=== PATIENT | female | born 1935 | race Caucasian/White ===

== ENCOUNTER 2019-09-21 10:33 | Inpatient (IN) | payer MEDICARE, SELFPAY ==
[2019-09-21 10:42] VITALS: BP 170/87; PULSE 84; RESP 20; TEMP 36.4; BMI 20.2
--- NOTE | 2019-09-21 10:55 | CT_ITS ---
WS: [id number] CT head wo con* [id number] REASON FOR EXAM: fall IV CONTRAST ADMINISTERED: None. TOTAL EXAM DLP: 1330.[address] scans at [facility] use at least one of these dose optimization techniques: automat ed exposure control; mA and/or kV adjustment per patient size (includes targeted exams where dose is matched to clinical indication); or iterative reconstruction. FINDINGS: There is again noted a small left occipital lobe infarction that has not changed since prev ious exam of August 04, 2017. There is mild effacement of the sulci in the frontal lobes suggesting cerebral atrophy. The ventricles are slightly prominent. There is again noted a small hypointensity in the internal cap natali area on the right consistent with a remote small vessel ischemic changes similar to the previous exam. The paranasal sinuses appear to be normal. The orbits show no abnormalities. The calvarium appear to be within normal limits. There is sclerotic changes along the intracranial vasculature are seen. Along the carotid siphon area there is heavy arteriosclerotic changes seen. This appears to be increased since previous exam. No a neurysms are seen. CT/CT head wo con* [id number] IMPRESSION: When compared to previous exam there is no acute intracranial processes Stable left chronic occipital lobe infarction. Unchanged small vessel ischemic changes in the paraventricular area. The carotid siphon shows increase arteriosclerotic changes bilaterally progress yokasta since previous exam slightly.
--- NOTE | 2019-09-21 11:07 | W.ED.FALL ---
HPI - Fall General: Chief Complaint: Fall Stated Complaint: LEFT HIP PAIN Time Seen by Provider: 09/21/19 10:55 History of Present Illness: HPI Narrative: Patient is an 84-year-old female who comes to the ED with left hip pain. Patient states she fell 2 days ago. She was unsure if she hit her head or not. Her only complaint after the fall was having left hip pain. Patient lives at home and ambulates without any assisting devices. Patient refuses any pain medications while here in the ED. Patient told me I do not believe in all these pain medicines. Patient feels pain in left hip whenever she moves left leg. Patient wears oxygen at home but is unsure of her flow rate. Associated symptoms-after fall: Denies abdominal pain, chest pain, headache(s), hematuria or neck pain Review of Systems Const: Denies: fever, chills or fatigue Eyes: Denies: change in vision or eye discomfort ENMT: Denies: throat pain, painful swallowing, nasal discharge or nasal congestion Card: Denies: chest pain, palpitations, edema, swelling of feet/ankles, shortness of breath on exertion or shortness of breath when lying down Resp: Denies: shortness of breath, productive cough or non-productive cough GI: Denies: abdominal pain, nausea, vomiting, diarrhea, constipation or blood in stool : Denies: flank pain, painful urination or blood in urine Musc: Reports: joint pain (left hip); Denies: neck pain, back pain or extremity swelling Skin/Breast: Denies: rash or new lesion Neuro: Denies: headache, numbness in extremities or weakness in extremities PFS ED PFSH: Medical History Anemia of chronic disease COPD (chronic obstructive pulmonary disease) Diabetes mellitus type 2, noninsulin dependent Diastolic heart failure History of CVA (cerebrovascular accident) Peripheral vascular disease Surgical History History of carotid endarterectomy Family History Other Cancer Diabetes Social History Smoking and tobacco status: current every day smoker Alcohol intake: never Substance/Drug Use: never Physical Exam Const: COMMON NORMALS: oriented x3 and alert GENERAL APPEARANCE: frail appearing NUTRITIONAL APPEARANCE: cachectic HENMT: COMMON NORMALS: normocephalic HEAD & SCALP: normal to inspection and normocephalic; no Mcmanus's sign, no contusion, no hematoma and no raccoon eyes MOUTH: oral and palatal mucosa normal THROAT: posterior oropharynx normal and uvula midline Eye: COMMON NORMALS: PERRL and EOMs intact bilaterally PUPIL: Yes PERRL Neck/C-Spine: COMMON NORMALS: supple GENERAL: Yes normal visual inspection Resp: COMMON NORMALS: normal respiratory effort, no retractions, no use of accessory muscles and clear to auscultation bilaterally AUSCULTATION: clear to auscultation bilaterally Cardio: COMMON NORMALS: regular rate, regular rhythm, S1 normal heart sound, S2 normal heart sound, no gallops, no clicks, no murmurs and peripheral pulses 2+ throughout RATE: regular rate RHYTHM: regular rhythm HEART SOUNDS: S1 normal and S2 normal PERIPHERAL PULSES: pulses 2+ throughout GI: COMMON NORMALS: normal to inspection, nondistended, normoactive bowel sounds, soft to palpation, non-tender and no masses PALPATION: Yes soft : COMMON NORMALS: Yes no CVA tenderness BLADDER/KIDNEY EXAM: Yes no CVA tenderness Back/Pelvis: COMMON NORMALS: no CVA tenderness Extremity: COMMON NORMALS: no pedal edema NARRATIVE EXTREMITY EXAM: Left lower leg appears to be externally rotated. Pulse was 1+2 left lower extremity and sensation was intact. She was able to move toes and ankle of left leg. Lifting leg or bending knee caused pain in left hip. GENERAL: Yes normal exam except as noted LEFT LOWER EXTREMITY: Yes hip joint Left hip: Yes palpation (mild tenderness), Yes ROM (limited due to pain) and Yes neurovascular exam (intact) Neuro: COMMON NORMALS: oriented x3, CN's II-XII intact bilaterally, moves all extremities, no focal motor deficits and no sensory deficits noted SENSORIUM/ORIENTATION: Yes alert Skin: COMMON NORMALS: no rashes or lesions noted GENERAL SKIN EXAM: no rashes or lesions noted and dry skin Course ED course: Patient's daughter was present when I discussed plan of care which involved patient being admitted and having a surgery on Monday or Monday. Patient and patient's daughter both understood and agreed with plan to go ahead with admission and surgery. I discussed patient case with Dr. Don and he will be handling the admission of patient. Consultations: Consultation #1: I contacted Dr. Sandoval, the on[place] [facility] [place] and discussed patient case with him. He recommended patient get admitted via hospitalist. They would control her pain over the weekend and plan on having a surgery on Monday or Monday. Vital Signs: Vital signs: Vital Signs Temperature 98.9 F 09/22/19 04:00 Pulse Rate 102 H 09/22/19 04:00 Respiratory Rate 18 09/22/19 04:00 Blood Pressure 133/69 09/22/19 04:00 Pulse Oximetry 94 09/22/19 04:00 MDM - Fall MDM Narrative: Medical decision making narrative: Patient is a 84-year-old female comes to the ED with left hip pain after fall. Left hip x-ray shows a subcapital fracture of the left hip. I contacted Dr. Sandoval the on-call orthopedic surgeon and he wanted patient to be admitted and planning for surgery on Monday or Monday. I discussed the case with Dr. Don and he will be handling the admitting process. Patient and patient's daughter were present when I discussed plan of care. They both understood and agreed with plan. Lab Data: Labs: Lab Results 09/21/19 Range/Units 11:55 Urine Color Yellow (Yellow) Urine Appearance Sl hazy (CLEAR) Urine pH 8 H (5-7) Ur Specific Gravit y 1.010 (1.005-1.030) Urine Protein Neg (Negative) Urine Glucose (UA) Norm (Normal) Urine Ketones Negative (Negative) Urine Blood 3+ H (Negative) Urine Nitrate Positive H (Negative) Urine Bilirubin Neg (NEGATIVE) Prot Sulfosalicyli c Acd Negative (Negative) Urine Urobilinogen Norm (Negative) mg/dL Ur Leukocyte Ana ase Negative (Negative) Urine RBC 15-25 H (0-2) /hpf Urine WBC 5-10 H (0-5) /hpf Ur Squamous Epith Cells 0-4 H (0-5) Urine Bacteria 4+ H (NONE) Imaging Data^: Xray Ortho: Attestation: I personally reviewed and interpreted this imaging study as follows: Radiologist's impression: [address] [address] XRay Report Signed Patient: Tabitha Meredith Unit #: [id number] : 1935 Age/Sex: 84 / F ADM Date: 09/21/19 Loc: ER Room/Bed: Attending Dr: Ordering Provider/Ordering MD: Tano Grullon Date of Service: 09/21/19 Procedure(s): XR hip LT 2-3V wo/w pel* [id number] Accession Number(s): [id number] Report Number: [id number] WS: [id number] XR hip LT 2-3V wo/w pel* [id number] REASON FOR EXAM: fall with left hip pain FINDINGS: This study shows an impacted fracture of the subcapital area of the left hip. Right hip appears to be normal. Tilt of the pelvis toward the right side is seen. XR/XR hip LT 2-3V wo/w pel* [id number] IMPRESSION: Subcapital fracture of the left hip. Tilt of the pelvis toward the left side. There is heavy arteriosclerotic changes present. Dictated By: Maxi Davalos DO Signed By: Maxi Davalos DO Signed Date/Time: 09/21/19 1226 DD/ 1225 CT Head: Attestation: I personally reviewed and interpreted this imaging study as follows: Radiologist's impression: [address] [address] [address] Scan Report Signed Patient: Tabitha Meredith Unit #: [id number] : 1935 Age/Sex: 84 / F ADM Date: 09/21/19 Loc: ER Room/Bed: Attending Dr: Ordering Provider/Ordering MD: Tano Grullon Date of Service: 09/21/19 Procedure(s): CT head wo con* [id number] Accession Number(s): [id number] Report Number: [id number] WS: [id number] CT head wo con* [id number] REASON FOR EXAM: fall IV CONTRAST ADMINISTERED: None. TOTAL EXAM DLP: 1330.[address] scans at [facility] use at least one of these dose optimization techniques: automated exposure control; mA and/or kV adjustment per patient size (includes targeted exams where dose is matched to clinical indication); or iterative reconstruction. FINDINGS: There is again noted a small left occipital lobe infarction that has not changed since previous exam of August 04, 2017. There is mild effacement of the sulci in the frontal lobes suggesting cerebral atrophy. The ventricles are slightly prominent. There is again noted a small hypointensity in the internal capsule area on the right consistent with a remote small vessel ischemic changes similar to the previous exam. The paranasal sinuses appear to be normal. The orbits show no abnormalities. The calvarium appear to be within normal limits. There is sclerotic changes along the intracranial vasculature are seen. Along the carotid siphon area there is heavy arteriosclerotic changes seen. This appears to be increased since previous exam. No aneurysms are seen. CT/CT head wo con* [id number] IMPRESSION: When compared to previous exam there is no acute intracranial processes Stable left chronic occipital lobe infarction. Unchanged small vessel ischemic changes in the paraventricular area. The carotid siphon shows increase arteriosclerotic changes bilaterally progressive since previous exam slightly. Dictated By: Maxi Davalos DO Signed By: Maxi Davalos DO Signed Date/Time: 09/21/19 1134 DD/ 1120 Discharge Plan Discharge Patient Disposition: Admitted As Inpatient Admit Provider: Leroy Arce Clinical Impression: Nondisplaced fracture of neck of left femur Atrial fibrillation Qualifiers: Atrial fibrillation type: other persistent Qualified Code(s): I48.19 - Other persistent atrial fibrillation Condition: Stable Discharge Date/Time: 09/21/19 18:46 Coding Level of Care Code ED Glazing Superintendent for Chg Fwd Exam Comprehensive
--- NOTE | 2019-09-21 11:25 | XR_ITS ---
WS: [id number] XR hip LT 2-3V wo/w pel* [id number] REASON FOR EXAM: fall with left hip pain FINDINGS: This study shows an impacted fracture of the subcapital area of the left hip. Right hip cande ears to be normal. Tilt of the pelvis toward the right side is seen. XR/XR hip LT 2-3V wo/w pel* [id number] IMPRESSION: Subcapital fracture of the left hip. Tilt of the pelvis toward the left side. There is heavy arteriosclerotic changes present.
--- NOTE | 2019-09-21 12:03 | PC.NURSE ---
UA collected and sent to lab
[2019-09-21 12:39] LABS: Urine Appearance SL Hazy (CLEAR); Urine Color Yellow (Yellow)
[2019-09-21 12:40] LABS: Bilirubin Urine Neg (NEGATIVE); Blood Urine 3+ (Negative); Glucose Urine UA Norm (Normal); Ketones Urine Negative (Negative); Leukocyte Esterase Urine Negative (Negative); Nitrate Urine Positive (Negative); Protein Urine Neg (Negative); Sulfosalicylic Acid Urine Negative (Negative); Urobilinogen Urine Norm (Negative); pH Urine 8 (5-7)
[2019-09-21 12:47] LABS: RBC Urine 15-25 /hpf (0-2)
[2019-09-21 12:48] LABS: Add Urine Culture? Yes; Bacteria Urine 4+; Squamous Epithelial Cell Urine 0-4 (0-5)
--- NOTE | 2019-09-21 15:51 | PM.CONSULT ---
Providers/Reason For Consult Consulting Physican/Specialty*: Arnel Sandoval MD Orthopedic Surgery Reason for Consult*: Left femoral neck fracture Primary Care Provider: Keny Szymanski DO History of Present Illness History of Present Illness Tabitha Meredith is a 84 year old female apparently lives at home. She is unable to give any history of being quite confused but reportedly had a fall with resulting left hip pain. She is transferred here by EMS and radiographs showed a minimally displaced fracture of the left femoral neck. Review of Systems General: Reports: ROS unobtainable due to mental status Meds/Allergies Home Medications and Allergies Home Medications Medication Instructions Recorded Confirmed Last Taken Type citalopram 0 mg PO DAILY 09/21/19 09/21/19 Unknown History furosemide 40 mg PO DAILY 09/21/19 09/21/19 Unknown History lisinopril 10 mg PO DAILY 09/21/19 09/21/19 Unknown History metoprolol tartrate 100 mg PO BID 09/21/19 09/21/19 Unknown History simvastatin 40 mg PO DAILY 09/21/19 09/21/19 Unknown History Allergies Allergy/AdvReac Type Severity Reaction Status Date / Time morphine Allergy ADR-Confusi Verified 09/21/19 10:53 on PFSH Acute PFSH: Social History Smoking and tobacco status: current every day smoker Vitals/I&O/Wt Last Vital Signs Temp 97.5 F L 09/21/19 10:42 Pulse 84 09/21/19 10:42 Resp 20 H 09/21/19 10:42 BP 170/87 09/21/19 10:42 Weight last 48 hrs Weight 118 lb Physical Exam Narrative: EXAM NARRATIVE: The patient is a elderly female supine in bed. She holds her left hip slightly flexed at the waist and is able to flex and extend it. Her skin over the left hip is healthy. She will flex and extend her left toes and ankle. Her feet are cold and I cannot feel a good pulse. Her sensation intact light touch. She has no pain with motion of her upper extremities or right lower extremity Data Imaging^: Xray Ortho: My impression: Radiographs the left hip show a valgus impacted fracture left femoral neck A&P Assessment and plan (1) Nondisplaced fracture of neck of left femur: I discussed care with the patient's daughter. Normal was unable to really participate in discussions regarding her care due to her mental status. Her daughter has power of consumer attorney. I I told her that with nonoperative treatment there is a risk of displacement the fracture. If the fracture displaces it would require a much larger procedure hemiarthroplasty. I discussed in situ pinning. I told the daughter that this will allow the patient to be immobilized immediately and minimize risk of fracture displacement. Altogether chance of this going on to heal are quite good. This would be a much smaller procedure. This conceivably could be done under local MAC of anesthesia sees frederic. Risk of bleeding infection would be minimal. Certainly risk with any fracture stabilization including nonunion, malunion, and avascular necrosis exist they are aware of the possible need for further procedures. The patient's daughter had good understanding of our discussion and agrees to proceed with pinning of the left hip. We will proceed with surgery Monday. Status: Acute Coding Level of Care Code Acute Head Of [employer] for [facility] Diagnoses Nondisplaced fracture of neck of left femur S72.002A
--- NOTE | 2019-09-21 15:58 | ECG_ITS ---
Measurements Intervals Elida Rate: 89 P: CA: 0 QRS: 78 QRSD: 100 T: 95 QT: 374 QTc: 455 ATRIAL FIBRILLATION WITH ABERRANT CONDUCTION OR VENTRICULAR PREMATURE COMPLEXES ABNORMAL RHYTHM ECG Compared to ECG 09/14/2018 23:46:02 Indeterminate axis no longer present T-wave abnormality no longer present Electronically Signed On 09-22-2019 19:57:32 CDT by Amy Root M.D. [email or web address]
--- NOTE | 2019-09-21 15:58 | CTR_ITS ---
PROCEDURE INFORMATION: Exam: CT Chest Without Contrast Exam date and time: 09/21/2019 4:50 PM Age: 84 years old Clinical indication: Patient HX: Wt loss and copd w new hip FX; Additional info: Weight loss, cachexia, requiring 3l o2 smoker, TECHNIQUE: Imaging protocol: Computed tomography of the chest without contrast. Radiation optimization: All CT scans at this facility use at least one of these dose optimization techniques: automated exposure control; mA and/or kV adjustment per patient size (includes targeted exams where dose is matched to clinical indication); or iterative reconstruction. COMPARISON: CR XR hip LT 2-3V wo/w pel* [id number] 09/21/2019 12:01 PM RADIATION DOSE METRICS: Total DLP: 1017.22 mGy-cm FINDINGS: Tubes, catheters and devices: Multiple small gas bubbles in the central venous system, likely introduced with IV catheter. Lungs: The severe diffuse centrilobular emphysema. Bandlike regions of scarring in the left lower lobe. Mild atelectasis in both lungs. Pleural space: Trace left pleural effusion. Trace right apical pneumothorax. Heart: Heavily calcified thoracic aorta and coronary arteries. Mitral annulus calcifications. Aorta: Unremarkable. No aortic aneurysm. Lymph nodes: Unremarkable. No enlarged lymph nodes. Bones/joints: Thoracic scoliosis. Mild T11 anterior wedge compression fracture. Soft tissues: Unremarkable. IMPRESSION: 1. Severe centrilobular emphysema with scarring in the left lower lobe. 2. Trace left pleural effusion. 3. Age indeterminate mild T11 compression fracture. PROCEDURE INFORMATION: Exam: CT Abdomen And Pelvis Without Contrast Exam date and time: 09/21/2019 4:50 PM Age: 84 years old Clinical indication: Patient HX: Wt loss and copd w new hip FX; Additional info: Weight loss, cachexia, requiring 3l o2 smoker, TECHNIQUE: Imaging protocol: Computed tomography of the abdomen and pelvis without contrast. Radiation optimization: All CT scans at this facility use at least one of these dose optimization techniques: automated exposure control; mA and/or kV adjustment per patient size (includes targeted exams where dose is matched to clinical indication); or iterative reconstruction. COMPARISON: CR XR hip LT 2-3V wo/w pel* [id number] 09/21/2019 12:01 PM RADIATION DOSE METRICS: Total DLP: 1017.22 mGy-cm FINDINGS: Liver: Calcified granulomas in the liver. Gallbladder and bile ducts: Normal. No calcified stones. No ductal dilation. Pancreas: Normal. No ductal dilation. Spleen: Calcified granulomas in the spleen. Adrenals: Normal. No mass. Kidneys and ureters: Nonobstructing 2-3 mm calculi in both kidneys. No hydronephrosis. Stomach and bowel: Diverticulosis of the distal colon. No evidence for diverticulitis. The stomach and small bowel are unremarkable. Appendix: The appendix is normal. Intraperitoneal space: Unremarkable. No free air. No significant fluid collection. Vasculature: Diffuse arterial calcifications. Lymph nodes: Unremarkable. No enlarged lymph nodes. Bladder: Gregory catheter in the urinary bladder. Reproductive: Unremarkable as visualized. Bones/joints: Proximal left femoral neck fracture. Soft tissues: Unremarkable. CT/CT chest abd pel wo con IMPRESSION: 1. No acute abnormality identified in the abdomen or pelvis. 2. Diverticulosis of the colon. 3. Nonobstructing renal calculi. 4. Left femoral neck fracture. Radiation Dose CTDIVOL = (mGy): DLP = 1017.22~1017.22 (mGy-cm)
--- NOTE | 2019-09-21 16:06 | P.HP_ITS ---
Providers/Chief Complaint Primary Care Provider: Keny Szymanski DO Chief Complaint: LEFT HIP PAIN History of Present Illness Tabitha Meredith is a 84 year old female the past medical history of diastolic heart failure, CVA, chronic atrial fibrillation not on anticoagulation, hyperlipidemia, hypertension, peripheral vascular disease chronic kidney disease, type 2 diabetes mellitus [id number], COPD uses 2 L when she feels short of breath, anemia chronic disease, history of carotid endarterectomy who presents to the emergency room status post fall. During my examination, patient is quite confused, she is alert oriented x1, she does not really know why she is here, and at times does not know her medical history, or the medication she takes, I tried to reach out to patient's daughter several times for unclear history, however the line is busy. But according to patient she fell sometime yesterday, said that she thinks she tripped and fell, denies head trauma, denies loss of consciousness, denies lightheadedness or dizziness preceding the fall, denies chest pain or shortness of breath preceding the fall, states that she not sure what she tripped on, but she got up and kept going because that is what had to be done, reported some pain in her left hip. But well when asked why she waited a day to come to the hospital, she is not sure, she is not exactly sure why she is here presently. Patient denies chest pain, denies shortness of breath, denies lightheadedness, denies dizziness, denies visual changes, denies slurring of speech, denies facial droop, denies abdominal pain, denies dysuria, denies dysuria, denies fevers, denies chills. Patient does report that she has lost roughly 30 pounds in the last few months, without trying, she has decreased appetite. She denies previous falls. She does report that she lives in a independent living facility as part of [facility]. Patient has a listed history of atrial fibrillation, states that she is on anticoagulation, but is not sure of the medication she takes, we called patient's pharmacy and [facility], and patient is not on anticoagulation. Patient has history of CVA, is not on aspirin, patient is not sure why. Patient has a history of type 2 diabetes mellitus, is not on any metformin, patient is unsure why. A significant portion of the medical history was obtained through secondhand accounts, ER physician, and through the chart. Review of Systems Const: Denies: fever, chills, fatigue or malaise Eyes: Denies: change in vision or blurry vision ENMT: Denies: nasal congestion Resp: Denies: shortness of breath, productive cough, non-productive cough or wheezing GI: Denies: abdominal pain, nausea, vomiting, vomiting blood, diarrhea, constipation, blood in stool or black tarry stool : Denies: flank pain, painful urination or urinary frequency Musc: Denies: neck pain or back pain Skin/Breast: Denies: rash Neuro: Denies: headache, dizziness or vertigo Psych: Denies: anxiety or depression Endo: Denies: excessive urination or excessive thirst Medications/Allergies Home Medications Medication Instructions Recorded Confirmed Last Taken Type citalopram 0 mg PO DAILY 09/21/19 09/21/19 Unknown History furosemide 40 mg PO DAILY 09/21/19 09/21/19 Unknown History lisinopril 10 mg PO DAILY 09/21/19 09/21/19 Unknown History metoprolol tartrate 100 mg PO BID 09/21/19 09/21/19 Unknown History simvastatin 40 mg PO DAILY 09/21/19 09/21/19 Unknown History Allergies Allergy/AdvReac Type Severity Reaction Status Date / Time morphine Allergy ADR-Confusi Verified 09/21/19 10:53 on PFSH Acute PFSH: Medical History (Updated 09/21/19 @ 16:13 by Leroy Arce MD) Anemia of chronic disease COPD (chronic obstructive pulmonary disease) Diabetes mellitus type 2, noninsulin dependent Diastolic heart failure History of CVA (cerebrovascular accident) Peripheral vascular disease Surgical History (Updated 09/21/19 @ 16:13 by Leroy Arce MD) History of carotid endarterectomy Family History (Updated 09/21/19 @ 16:13 by Leroy Arce MD) Other Cancer Diabetes Social History (Updated 09/21/19 @ 16:14 by Leroy Arce MD) Smoking and tobacco status: current every day smoker Alcohol intake: never Substance/Drug Use: never Vitals/I&O/Wt Last Vital Signs Temp 97.5 F L 09/21/19 10:42 Pulse 84 09/21/19 10:42 Resp 20 H 05/09/20 10:42 BP 170/87 09/21/19 10:42 Weight last 48 hrs Weight 53.524 kg Physical Exam Const: COMMON NORMALS: no apparent distress and alert GENERAL APPEARANCE: cooperative, comfortable, disheveled and frail appearing ORIENTATION/C ONSCIOUSNESS: Yes awake, Yes oriented to person and Yes confused; not oriented to place and not oriented to time HENMT: COMMON NORMALS: normocephalic HEAD & SCALP: normocephalic Eye: COMMON NORMALS: PERRL and EOMs intact bilaterally GENERAL EYE: normal appearance of both eyes PUPIL: Yes PERRL DIRECT OPHTHALMOSCOPY: Yes no papilledema Neck/C-Spine: COMMON NORMALS: full ROM, no lymphadenopathy, no JVD and thyroid normal THYROID: thyroid normal Lymph: LYMPHATIC: no lymphadenopathy noted Resp: COMMON NORMALS: normal respiratory effort, no retractions, no use of accessory muscles and clear to auscultation bilaterally AUSCULTATION: clear to auscultation bilaterally Cardio: COMMON NORMALS: no JVD, regular rate, regular rhythm, S1 normal heart sound, S2 normal heart sound, no gallops, no clicks and no murmurs RATE: regular rate RHYTHM: regular rhythm HEART SOUNDS: S1 normal and S2 normal GI: COMMON NORMALS: normal to inspection, nondistended, normoactive bowel sounds, soft to palpation, non-tender and no hepatosplenomegaly PALPATION: Yes soft and Yes no hepatosplenomegaly Extremity: COMMON NORMALS: normal to inspection, full ROM and no pedal edema Neuro: COMMON NORMALS: CN's II-XII intact bilaterally, moves all extremities and no focal motor deficits SPEECH: speech normal Psych: ATTENTION/CONCENTRATION: Yes attention grossly impaired and Yes concentration grossly impaired MEMORY/COGNITION: Yes memory grossly impaired INSIGHT: limited A&P Assessment and plan (1) Nondisplaced fracture of neck of left femur: -I am unsure about the nature of patient's fall mechanical versus related to an underlying medical etiology -Patient does have a history of syncope -Patient does have a urinary tract infection -Patient denies any cardiac history, does have a history of diastolic heart failure, on echocardiogram on 05/03/2017 left ventricular systolic function appear to be normal, moderate increased right and left atrial size, mild aortic valve regurg, moderate tricuspid valve regurg, mild pulmonary valve regurgitation. EKG on September 2018 shows atrial fibrillation -Patient carotid ultrasound on April 2017 shows right ICA stenosis less than 50%, left ICA stenosis less than 50%, left CEA, moderate atheromatous plaque of the right carotid bulb/ICA -Patient does have a history of COPD, has been smoking since she was 15, states that she uses 2 L oxygen when needed -CT head revealed stable left chronic occipital lobe infarct Plan: -Will obtain CT chest, EKG, CBC, CMP, mag, PHOS, TSH, A1c, lipid panel, INR, cardiac echo, telemetry monitoring -Dr. Sandoval from surgery has been consulted -Pain control with morphine -Anticoagulation with Lovenox -Aspiration precautions, neuro checks, seizure precautions Status: Acute (2) Altered mental status: -Secondary to urinary tract infection, possible underlying dementia Plan: -Follow urine cultures, blood cultures -Continue Rocephin -Blood work-up as above -Echo, E, EKG, telemetry monitoring -CT of her chest given smoking history, 3 L oxygen requirement Status: Acute (3) Cachexia: Patient states that she lost roughly 30 pounds in the last few months, decreased appetite, does have a family history of abdominal cancers, abdominal exam revealed a periumbilical density Plan: -We will do CT scan of the abdomen -Blood work as above -Protein shakes with meals Status: Acute (4) Severe protein-calorie malnutrition: Status: Acute (5) Diastolic heart failure: Hold Lasix, cardiac echo Status: Acute (6) History of CVA (cerebrovascular accident): Chronic left occipital lobe infarct Status: Acute (7) Diabetes mellitus type 2, noninsulin dependent: Will obtain hemoglobin A1c, low-dose sliding scale Status: Acute (8) Peripheral vascular disease: Status: Acute (9) COPD (chronic obstructive pulmonary disease): CT of the chest, oxygen therapy Status: Acute (10) Anemia of chronic disease: Status: Acute Attestations Medical Necessity Statement*: Patient requires hospitalization, greater than 2 midnights, for altered mental status, nondisplaced fracture of left FEMUR Coding Level of Care Code Acute Joiner for [facility] Fwd Diagnoses Nondisplaced fracture of neck of left femur S72.002A Altered mental status R41.82 Cachexia R64 Severe protein-calorie malnutrition E43 Diastolic heart failure I50.30 History of CVA (cerebrovascular accident) Z86.73 Diabetes mellitus type 2, noninsulin dependent E11.9 Peripheral vascular disease I73.9 COPD (chronic obstructive pulmonary disease) J44.9 Anemia of chronic disease D63.8
[2019-09-21 16:46] LABS: Basophils % 0.5 %; Eosinophils % 0.1 %; Hematocrit 43.2 % (37.0-47.0); Hemoglobin 13.2 g/dL (11.5-15.3); Lymphocytes # 0.7 10^3/uL (0.8-4.8); Lymphocytes % 8.9 %; Mean Corpuscular HGB Conc 30.6 g/dL (30.0-36.0); Mean Corpuscular Hemoglobin 29.7 pg (28.0-34.0); Mean Corpuscular Volume 97.3 fL (81-99); Mean Platelet Volume 12.3 fL (7.4-10.4); Monocytes # 0.7 10^3/uL (0.2-0.9); Monocytes % 8.9 %; Neutrophils # 6.3 10^3/uL (1.8-7.7); Neutrophils % 81.3 %; Nucleated Red Blood Cells % 0 %; Platelet Count 142 10^3/cmm (130-400); Red Blood Count 4.44 10^6/uL (4.1-5.3); Red Cell Distribution Width 11.9 % (12.1-15.1); White Blood Count 7.7 10^3/uL (4.0-10.0)
[2019-09-21 16:55] LABS: INR 1.09 (0.8-1.2)
[2019-09-21 17:06] LABS: Estmated Average Glucose 160; Hemoglobin A1C 7.2 % (4.0-6.0)
[2019-09-21 17:15] LABS: Alanine Aminotransferase 10 U/L (0-33); Alkaline Phosphatase 86 IU/L (35-105); Anion Gap 16.4 (5-19); Aspartate Amino Transferase 19 U/L (0-32); Blood Urea Nitrogen 18 mg/dL (8-23); Calcium 10.2 mg/dL (8.5-10.5); Carbon Dioxide 29 mmol/L (22-29); Chloride 95 mmol/L (98-107); Globulin 3.8 g/dL (1.3-4.6); Glucose 129 mg/dL (65-115); Magnesium 2.3 mg/dL (1.7-2.3); NT Pro B Type Natriuretic Pept 7250 pg/mL (0-450); Osmolality Calculated 280 mOsm/kg (285-295); Phosphorus 3.5 mg/dL (2.5-4.5); Potassium 4.4 mmol/L (3.5-5.1); Sodium 136 mmol/L (136-145); Thyroid Stimulating Hormone 4.62 uIU/mL (0.27-4.20); Total Bilirubin 1.1 mg/dL (0.15-1.2); Total Protein 7.8 g/dL (6.6-8.7)
[2019-09-21 17:32] VITALS: BP 177/95; PULSE 101; RESP 18; TEMP 36.7; O2SAT 90
--- NOTE | 2019-09-21 17:46 | PC.NURSE ---
EKG done at 1735 and shown to ER doctor
[2019-09-21 17:57] VITALS: BP 95/65; PULSE 106; PULSE 60; RESP 16; TEMP 37.1; O2SAT 96
[2019-09-21] MEDS: enoxaparin 40 mg/0.4 mL Syringe SUBCUT (18:16)
[2019-09-21] MEDS: cefTRIAXone 1,000 MG in sodium chloride 0.9% (plus) 50 ML 100 MG IV (18:17)
[2019-09-21 18:57] VITALS: BP 190/99; PULSE 106; RESP 18; TEMP 36.4; O2SAT 92
[2019-09-21 19:13] LABS: Chol HDL Ratio 2.32 mg/dL (0.0-4.40); Cholesterol 144 mg/dL (0-200); HDL Cholesterol 62 mg/dL (60-100); LDL Cholesterol Calculated 67 mg/dL (50-129); LDL HDL Ratio 1.08 RATIO (0.00-3.22); Triglycerides 76 mg/dL (0-150)
[2019-09-21 19:16] VITALS: BP 160/82
[2019-09-21] MEDS: atorvastatin 40 mg Tablet 20 MG PO (21:52)
[2019-09-22] VITALS (14 sets, daily range): BP systolic 123–175; BP diastolic 69–93; PULSE 58–102; RESP 15–24; TEMP 36.7–37.4; O2SAT 94–100
--- NOTE | 2019-09-22 06:00 | USCV_ITS ---
Tabitha Meredith Age: 84 Gender: F : 1935 Exam Date: 09/22/2019 06:41 Ordering Phys: Leroy Arce MD Technologist: Autumn Cardoza Exam Location: [facility] [place] Indication: SOB BP: 133 / 69 HR: 97 Rhythm: Atrial fibrillation Technical Quality: Suboptimal MEASUREMENTS (Male / Female) Normal Values 2D ECHO LV Diastolic Diameter PLAX 3.0 cm 4.2 - 5.9 / 3.9 - 5.3 cm LV Systolic Diameter PLAX 2.4 cm LV Chamber Size 3.6 cm IVS Diastolic Thickness 1.7 cm 0.6 - 1.0 / 0.6 - 0.9 cm IVS Systolic Thickness 2.0 cm LVPW Diastolic Thickness 1.0 cm 0.6 - 1.0 / 0.6 - 0.9 cm LVPW Systolic Thickness 1.2 cm RV Chamber Size 1.9 cm LVOT Diameter 2.1 cm LV Ejection Fraction 2D Teich 43.2 % LV Ejection Fraction MOD 2C 42.7 % LV Ejection Fraction 2C AL 51.2 % LA Diameter 3.2 cm LA Width 4.1 cm LA Height 5.1 cm RA Width 3.3 cm RA Height 4.6 cm Aorta at Sinotubular Diameter 2.7 cm M-MODE LV Diastolic Diameter MM 5.5 cm 4.2 - 5.9 / 3.9 - 5.3 cm LV Systolic Diameter MM 4.2 cm LV Ejection Fraction MM Teich 48.8 % IVS Diastolic Thickness MM 0.8 cm 0.6 - 1.0 / 0.6 - 0.9 cm IVS Systolic Thickness MM 1.1 cm LVPW Diastolic Thickness MM 1.6 cm 0.6 - 1.0 / 0.6 - 0.9 cm LVPW Systolic Thickness MM 1.8 cm Aortic Annulus Diameter 3.6 cm LA Ao Ratio MM 0.9 MV E Point Septal Separation 0.3 cm DOPPLER AV Peak Velocity 79.0 cm/s LVOT Peak Velocity 40.0 cm/s AV Area Cont Eq vti 1.9 cm squared AV Area Cont Eq pk 1.7 cm squared MV Area PHT 5.9 cm squared MV E' Velocity 96.0 cm/s TR Peak Velocity 288.0 cm/s TR Peak Gradient 33.1 mmHg TV Peak E Velocity 41.0 cm/s Right Atrial Pressure 3.0 mmHg Pulmonary Artery Systolic Pressu 36.2 mmHg PV Peak Velocity 80.0 cm/s RV Acceleration Time 0.1 s RV Ejection Time 0.2 s RV AcT/ET 0.3 FINDINGS Left Ventricle Normal left ventricular size and systolic function, EF 65 %. Mild concentric left renal hypertrophy. No gross wall motion normalities Right Ventricle Normal right ventricular size and systolic function. Right Atrium Mildly increased right atrial size. Left Atrium Mildly increased left atrial size. Mitral Valve Thickened mitral valve. Moderate to heavy mitral annular calcification. Aortic Valve Thickened aortic valve. Mild aortic valve regurgitation. Tricuspid Valve Trace to mild tricuspid valve regurgitation. Pulmonic Valve No gross abnormalities noted Pericardium No pericardial effusion. Aorta Normal aortic annulus size. CONCLUSIONS Normal left ventricular size and systolic function, EF 65 %. Mild concentric left renal hypertrophy. No gross wall motion normalities. Biatrial enlargement Thickened aortic and mitral valves with a moderate to heavy mitral annular calcification Mild aortic valve regurgitation. Mild mitral with trace to mild tricuspid regurgitation Estimated pulmonary artery peak systolic pressure of 36 mmHg There is no pericardial effusion. There are no intracardiac masses. Compared to the previous study from 05/08/2017, there may not be a significant change Dr Amy Root MD FAC (Electronically Signed) Final Date: 22 Sep 2019 10:42 S
--- NOTE | 2019-09-22 08:23 | XR_ITS ---
WS: [id number] XR chest 1V portable [id number] REASON FOR EXAM: apical ptx FINDINGS: Chronic obstructive pulmonary disease findings are noted the lung griffith are hyper aerated. Small amount of left pleural effusion is obliterating the costophrenic angle. The heart is not enlarged there is arteriosclerotic changes seen in the arch the aorta. The right hilum showed granulomas well calcified. The apices were normal. XR/XR chest 1V portable [id number] IMPRESSION: Chronic obstructive pulmonary disease Left small amount of pleural effusion Arteriosclerotic changes.
[2019-09-22] MEDS: metoprolol tartrate 1 mg/1 mL SDV 5 mL 5 MG IV (08:25)
[2019-09-22] MEDS: FUROsemide 10 mg/mL SDV 4mL 40 MG IVP (08:28)
--- NOTE | 2019-09-22 08:29 | ECG_ITS ---
Measurements Intervals [place] Rate: 88 P: NV: 0 QRS: 55 QRSD: 104 T: 59 QT: 385 QTc: 466 ATRIAL FIBRILLATION PROBABLE INFERIOR MYOCARDIAL INFARCTION [35 ms Q WAVE IN II/aVF], PROBABLY OLD Compared to ECG 09/14/2018 23:46:02 Myocardial infarct finding now present Ventricular premature complex(es) no longer present Aberrant conduction of supraventricular beat(s) no longer present Indeterminate axis no longer present T-wave abnormality no longer present Electronically Signed On 09-22-2019 20:04:42 CDT by Amy Root M.D. [id number]
[2019-09-22] MEDS: lisinopril 10 mg Tablet PO (08:36)
[2019-09-22] MEDS: citalopram 20 mg Tablet 10 MG PO (08:37)
[2019-09-22] MEDS: ipratropium-albuterol 3 mL Neb INHALATION ×3 (09:05→20:25)
[2019-09-22] MEDS: heparin drip 25,000 UNIT/500 ML PREMIX 15 UNIT IV (10:36)
[2019-09-22 11:55] LABS: Glucose Point of Care 213 mg/dL (70-110)
--- NOTE | 2019-09-22 14:15 | PM.PN ---
Subjective Subjective: Interval history: This morning patient had intermittent episodes of A. fib with RVR, heart rates as high as 160s, intermittent episodes of shortness of breath, improved with 5 mg IV metoprolol, respiratory symptoms improved with breathing treatments, and control of heart rate Patient this morning still has episodes of confusion, requires redirection, sometimes hard to gauge if she understands what is going on, I advised patient that tomorrow she is going to have surgical intervention, likely patient is going to require fpc placement, as in my mind she is unsafe to go back to the assisted living facility, patient accepted this, she states that she is willing to go to the fpc I spoke to patient's daughter, states that for the last [address] Szymanski in the family has been trying to get her to go over to the fpc, but patient refuses. Patient has a history of atrial fibrillation, has stopped taking Eliquis as she cannot afford it. Patient has a history of diabetes, but stopped she talked to Dr. Szymanski into stopping metformin. Vitals/I&O/Wt Last Vital Signs Temp 98.2 F 09/22/19 12:00 Pulse 88 09/22/19 12:00 Resp 16 09/22/19 12:00 BP 123/73 09/22/19 12:00 Pulse Ox 99 09/22/19 12:00 09/21/19 09/22/19 09/22/19 22:59 06:59 14:59 Intake Total 120 / 120 540 / 540 Output Total 380 / 380 Balance 120 / 120 -380 / -260 540 / 540 Weight last 48 hrs Weight 53.524 kg Physical Exam Const: COMMON NORMALS: no apparent distress and alert GENERAL APPEARANCE: cooperative, comfortable and frail appearing ORIENTATION/CONSCIOUSNESS: Yes awake, Yes oriented to person and Yes confused; not oriented to place and not oriented to time HENMT: COMMON NORMALS: normocephalic HEAD & SCALP: normocephalic Neck/C-Spine: COMMON NORMALS: no JVD Lymph: LYMPHATIC: no lymphadenopathy noted Resp: COMMON NORMALS: normal respiratory effort, no retractions, no use of accessory muscles and clear to auscultation bilaterally AUSCULTATION: clear to auscultation bilaterally Cardio: COMMON NORMALS: no JVD, regular rate, regular rhythm, S1 normal heart sound, S2 normal heart sound, no gallops, no clicks and no murmurs RATE: regular rate RHYTHM: regular rhythm HEART SOUNDS: S1 normal and S2 normal GI: COMMON NORMALS: normal to inspection, nondistended, normoactive bowel sounds, soft to palpation, non-tender and no hepatosplenomegaly PALPATION: Yes soft and Yes no hepatosplenomegaly Extremity: COMMON NORMALS: normal to inspection, full ROM and no pedal edema Neuro: SENSORIUM/ORIENTATION: Yes alert, Yes oriented to person, No oriented to place and No oriented to time Psych: ATTENTION/CONCENTRATION: Yes attention grossly impaired and Yes concentration grossly impaired MEMORY/COGNITION: Yes memory grossly impaired INSIGHT: limited Urinary Catheter Management^: Gregory: Cath Placed During This Visit: yes Reason for Continuing Indwelling Catheter: Required Immobilization for Trauma or Surgery or Anesthesia Urinary Catheter Date of Insertion: 09/21/19 Urinary Catheter Time of Insertion: 17:32 Data : 09/21/19 16:36 09/21/19 16:36 Micro: Microbiology 09/21/19 11:55 Urine Culture - Preliminary Urine,Clean Catch Gram Negative Rods 09/21/19 16:38 Blood Culture - Preliminary Blood SPECIMEN COLLECTED 09/21/19 16:36 Blood Culture - Preliminary Blood SPECIMEN COLLECTED A&P Assessment and plan (1) Nondisplaced fracture of neck of left femur: -I am unsure about the nature of patient's fall mechanical versus related to an underlying medical etiology -Patient does have a history of syncope -Patient does have a urinary tract infection -Patient denies any cardiac history, does have a history of diastolic heart failure, on echocardiogram on 05/03/2017 left ventricular systolic function appear to be normal, moderate increased right and left atrial size, mild aortic valve regurg, moderate tricuspid valve regurg, mild pulmonary valve regurgitation. EKG on September 2018 shows atrial fibrillation -Patient carotid ultrasound on April 2017 shows right ICA stenosis less than 50%, left ICA stenosis less than 50%, left CEA, moderate atheromatous plaque of the right carotid bulb/ICA -Patient does have a history of COPD, has been smoking since she was 15, states that she uses 2 L oxygen when needed -CT head revealed stable left chronic occipital lobe infarct -Repeat echocardiogram today shows ejection fraction 65%, mild LVH,, biatrial enlargement -BNP is 7250 -hemoglobin A1c 7.2 -Patient is moderate risk for moderate risk surgery Plan: -Dr. Jaime from surgery has been consulted n.p.o. midnight, for surgical intervention tomorrow morning -Pain control with morphine -Anticoagulation with heparin -Aspiration precautions, neuro checks Status: Acute (2) Altered mental status: -Secondary to urinary tract infection, likely underlying dementia Plan: -Follow urine cultures, blood cultures -Continue Rocephin -CT of her chest given smoking history, 3 L oxygen requirement -Patient is unsafe to go back to the assisted living facility, will require fpc placement Status: Acute (3) Cachexia: Patient states that she lost roughly 30 pounds in the last few months, decreased appetite Plan: -Protein shakes with meals Status: Acute (4) Severe protein-calorie malnutrition: Status: Acute (5) Diastolic heart failure: Status: Acute (6) History of CVA (cerebrovascular accident): Chronic left occipital lobe infarct Status: Acute (7) Diabetes mellitus type 2, noninsulin dependent: Hemoglobin A1c 7.2, low-dose sliding scale Status: Acute (8) Peripheral vascular disease: Status: Acute (9) COPD (chronic obstructive pulmonary disease): Status: Acute (10) Anemia of chronic disease: Status: Acute (11) Atrial fibrillation: Currently rate controlled Heparin drip, transition to Eliquis on discharge, metoprolol 100 twice daily Status: Acute Qualifiers: Atrial fibrillation type: other persistent Qualified Code(s): I48.19 - Other persistent atrial fibrillation (12) Acute respiratory failure: -Resolved -Secondary to A. fib with RVR, CHF, pulmonary edema, COPD Plan: -Oxygen therapy, 3 L oxygen currently -Currently rate controlled, respiratory status has improved -Lasix 40 mg IV once -DuoNeb treatments every 4 hours -Advair, albuterol -Currently not wheezing, no need for steroids Status: Acute Attestations Medical Necessity Statement*: Patient requires hospitalization for nondisplaced fracture of left femur, altered mental status, requiring surgical intervention and fpc placement Coding Level of Care Code Acute Administrative Supervisor for [facility] Diagnoses Nondisplaced fracture of neck of left femur S72.002A Altered mental status R41.82 Cachexia R64 Severe protein-calorie malnutrition E43 Diastolic heart failure I50.30 History of CVA (cerebrovascular accident) Z86.73 Diabetes mellitus type 2, noninsulin dependent E11.9 Peripheral vascular disease I73.9 COPD (chronic obstructive pulmonary disease) J44.9 Anemia of chronic disease D63.8 Atrial fibrillation I48.19 Atrial fibrillation type: other persistent Acute respiratory failure J96.00
--- NOTE | 2019-09-22 14:42 | PC.OT ---
OT note: Will await OT eval until after surgery.
[2019-09-22 16:11] LABS: Partial Thromboplastin Time 113.1 SECONDS (23.9-36.7)
[2019-09-22 17:23] LABS: Glucose Point of Care 216 mg/dL (70-110)
[2019-09-22] MEDS: metoprolol tartrate 50 mg Tablet 100 MG PO (18:00)
[2019-09-22] MEDS: cefTRIAXone 1,000 MG in sodium chloride 0.9% (plus) 50 ML 100 MG IV (18:00)
--- NOTE | 2019-09-22 18:42 | PC.PT ---
PT evaluation on hold awaiting surgical repair, and orders from orthopedist.
[2019-09-22 21:26] LABS: Glucose Point of Care 132 mg/dL (70-110)
[2019-09-22] MEDS: atorvastatin 40 mg Tablet 20 MG PO (21:50)
[2019-09-22 22:04] LABS: Partial Thromboplastin Time 62.8 SECONDS (23.9-36.7)
[2019-09-23] VITALS (15 sets, daily range): BP systolic 112–163; BP diastolic 61–89; PULSE 61–88; RESP 12–24; TEMP 36.3–37.4; O2SAT 98–100
--- NOTE | 2019-09-23 | XR_ITS ---
WS: [id number] C-ARM RADIOGRAPHS LEFT HIP; 3 IMAGES HISTORY: OR PICS COMPARISON: 09/21/2019 Intraoperative screw fixation LEFT femoral neck fracture. Subcapital hip fracture with slight impacti on has been reduced and stabilized with 3 screws. XR/XR hip LT 2-3V wo/w pel* [id number] IMPRESSION: Intraoperative fixation LEFT femoral neck fracture.
--- NOTE | 2019-09-23 | SCC_ITS ---
Procedure Done: Percutaneous pinning left hip 57.0 seconds of fluoroscopic guidance, for a cumulative dose of 3.95 mGy, was provided to Dr. Sandoval by the radiology department. C-arm images of the LEFT hip were saved for the patient's permanent record. [facility] HOSPITALArsalan
[2019-09-23 03:49] LABS: Basophils % 0.6 %; Eosinophils % 0.3 %; Hematocrit 33.8 % (37.0-47.0); Hemoglobin 10.7 g/dL (11.5-15.3); Lymphocytes # 0.9 10^3/uL (0.8-4.8); Lymphocytes % 14.6 %; Mean Corpuscular HGB Conc 31.7 g/dL (30.0-36.0); Mean Corpuscular Hemoglobin 30.1 pg (28.0-34.0); Mean Corpuscular Volume 94.9 fL (81-99); Mean Platelet Volume 12.5 fL (7.4-10.4); Monocytes # 0.7 10^3/uL (0.2-0.9); Monocytes % 11.5 %; Neutrophils # 4.5 10^3/uL (1.8-7.7); Neutrophils % 72.7 %; Nucleated Red Blood Cells % 0 %; Platelet Count 116 10^3/cmm (130-400); Red Blood Count 3.56 10^6/uL (4.1-5.3); Red Cell Distribution Width 11.9 % (12.1-15.1); White Blood Count 6.2 10^3/uL (4.0-10.0)
[2019-09-23 03:54] LABS: Partial Thromboplastin Time 57.4 SECONDS (23.9-36.7)
[2019-09-23 04:05] LABS: Alanine Aminotransferase 6 U/L (0-33); Albumin Level 3.2 g/dL (3.5-5.2); Alkaline Phosphatase 66 IU/L (35-105); Anion Gap 14.8 (5-19); Aspartate Amino Transferase 15 U/L (0-32); Blood Urea Nitrogen 24 mg/dL (8-23); Calcium 9.2 mg/dL (8.5-10.5); Carbon Dioxide 29 mmol/L (22-29); Chloride 96 mmol/L (98-107); Globulin 3.3 g/dL (1.3-4.6); Glucose 148 mg/dL (65-115); Osmolality Calculated 282 mOsm/kg (285-295); Phosphorus 2.8 mg/dL (2.5-4.5); Potassium 3.8 mmol/L (3.5-5.1); Sodium 136 mmol/L (136-145); Total Bilirubin 0.7 mg/dL (0.15-1.2); Total Protein 6.5 g/dL (6.6-8.7)
[2019-09-23 08:14] LABS: Glucose Point of Care 133 mg/dL (70-110)
[2019-09-23 08:14] LABS: Glucose Point of Care 134 mg/dL (70-110)
[2019-09-23] MEDS: citalopram 20 mg Tablet 10 MG PO (08:29)
[2019-09-23] MEDS: metoprolol tartrate 50 mg Tablet 100 MG PO (08:29)
[2019-09-23] MEDS: lisinopril 10 mg Tablet PO (08:29)
--- NOTE | 2019-09-23 08:53 | PC.NURSE ---
Addendum entered by Ria Harrison RN 09/23/19 09:06: called admissions and requested updated contacts Original Note: rcvd call from patient's daughter Madisyn Parr requesting time for surgery and wanted to give us her cell phone number. Cell phone number is [phone]. Her brother Jarred Meredith [phone]. Patient's daughter wanted contacts updated in contact list.
[2019-09-23 08:54] LABS: Ferritin 324 ng/mL (15-150); Iron 37 ug/dL (37-145); Percent Saturation 19.7 % (20-50); Total Iron Binding Capacity 187 mcg/dl; Unsaturated Iron Binding 150 ug/dL (112-347)
[2019-09-23] MEDS: ipratropium-albuterol 3 mL Neb INHALATION ×3 (08:54→16:30)
--- NOTE | 2019-09-23 09:53 | PM.PN ---
Subjective Subjective: Interval history: This morning patient was examined, patient complains of pain in the ball of her right foot, denies chest pain, denies shortness of breath, denies lightheadedness, denies dizziness, patient still has episodes of confusion, but is easy redirectable Vitals/I&O/Wt Last Vital Signs Temp 97.3 F L 09/23/19 07:49 Pulse 83 09/23/19 09:01 Resp 18 09/23/19 09:01 BP 139/81 09/23/19 07:49 Pulse Ox 99 09/23/19 09:01 09/22/19 09/23/19 09/23/19 22:59 06:59 14:59 Intake Total 240 / 780 50 / 50 Output Total 800 / 800 400 / 1200 Balance -560 / -20 -400 / -420 50 / 50 Weight last 48 hrs Weight 53.524 kg Physical Exam Const: COMMON NORMALS: no apparent distress and alert GENERAL APPEARANCE: cooperative, comfortable, disheveled and frail appearing ORIENTATION/CONSCIOUSNESS: Yes awake and Yes oriented to person Neck/C-Spine: COMMON NORMALS: full ROM, no lymphadenopathy, no JVD and thyroid normal THYROID: thyroid normal Lymph: LYMPHATIC: no lymphadenopathy noted Resp: COMMON NORMALS: normal respiratory effort, no retractions, no use of accessory muscles and clear to auscultation bilaterally AUSCULTATION: clear to auscultation bilaterally Cardio: COMMON NORMALS: no JVD, regular rate, S1 normal heart sound, S2 normal heart sound, no gallops, no clicks and no murmurs RATE: regular rate RHYTHM: abnormal rhythm HEART SOUNDS: S1 normal and S2 normal GI: COMMON NORMALS: normal to inspection, nondistended, normoactive bowel sounds, soft to palpation, non-tender and no hepatosplenomegaly PALPATION: Yes soft and Yes no hepatosplenomegaly Extremity: COMMON NORMALS: normal to inspection, full ROM and no pedal edema Neuro: SENSORIUM/ORIENTATION: Yes alert and Yes oriented to person Psych: ATTENTION/CONCENTRATION: Yes attention grossly impaired and Yes concentration grossly impaired MEMORY/COGNITION: Yes memory grossly impaired INSIGHT: limited Urinary Catheter Management^: Gregory: Cath Placed During This Visit: yes Reason for Continuing Indwelling Catheter: Required Immobilization for Trauma or Surgery or Anesthesia Urinary Catheter Date of Insertion: 09/21/19 Urinary Catheter Time of Insertion: 17:32 Data : 09/23/19 03:29 09/23/19 03:29 Micro: Microbiology 09/21/19 11:55 Urine Culture - Final Urine,Clean Catch Klebsiella pneumoniae 09/21/19 16:38 Blood Culture - Preliminary Blood NEGATIVE TO DATE 09/21/19 16:36 Blood Culture - Preliminary Blood NEGATIVE TO DATE A&P Assessment and plan (1) Nondisplaced fracture of neck of left femur: -I am unsure about the nature of patient's fall mechanical versus related to an underlying medical etiology -Patient does have a history of syncope -Patient does have a urinary tract infection -Patient denies any cardiac history, does have a history of diastolic heart failure, on echocardiogram on 05/03/2017 left ventricular systolic function appear to be normal, moderate increased right and left atrial size, mild aortic valve regurg, moderate tricuspid valve regurg, mild pulmonary valve regurgitation. EKG on September 2018 shows atrial fibrillation -Patient carotid ultrasound on April 2017 shows right ICA stenosis less than 50%, left ICA stenosis less than 50%, left CEA, moderate atheromatous plaque of the right carotid bulb/ICA -Patient does have a history of COPD, has been smoking since she was 15, states that she uses 2 L oxygen when needed -CT head revealed stable left chronic occipital lobe infarct -Repeat echocardiogram today shows ejection fraction 65%, mild LVH,, biatrial enlargement -BNP is 7250 -hemoglobin A1c 7.2 -Patient is moderate risk for moderate risk surgery Plan: -Dr. Sandoval from surgery has been consulted for surgical intervention later on this afternoon -Pain control with morphine -Anticoagulation with heparin -Aspiration precautions, neuro checks -Patient's hemoglobin did drop to 10.7, platelet count did decrease to 116, no signs of bleeding, hemodynamically stable, will recheck CBC at 1 PM, iron studies Status: Acute (2) Altered mental status: -Secondary to urinary tract infection, likely underlying dementia Plan: -Urine culture positive for Klebsiella pneumonia, blood culture so far unremarkable -Continue Rocephin -Patient is unsafe to go back to the assisted living facility, will require shelter placement Status: Acute (3) Cachexia: Patient states that she lost roughly 30 pounds in the last few months, decreased appetite Plan: -Protein shakes with meals Status: Acute (4) Severe protein-calorie malnutrition: Status: Acute (5) Diastolic heart failure: Status: Acute (6) History of CVA (cerebrovascular accident): Chronic left occipital lobe infarct Status: Acute (7) Diabetes mellitus type 2, noninsulin dependent: Hemoglobin A1c 7.2, low-dose sliding scale Status: Acute (8) Peripheral vascular disease: Status: Acute (9) COPD (chronic obstructive pulmonary disease): Status: Acute (10) Anemia of chronic disease: Status: Acute (11) Atrial fibrillation: Currently rate controlled Heparin drip, transition to Eliquis on discharge, metoprolol 100 twice daily Status: Acute Qualifiers: Atrial fibrillation type: other persistent Qualified Code(s): I48.19 - Other persistent atrial fibrillation (12) Acute respiratory failure: -Resolved -Secondary to A. fib with RVR, CHF, pulmonary edema, COPD -1580 urine output Plan: -Oxygen therapy, 3 L oxygen currently -Currently rate controlled, respiratory status has improved -DuoNeb treatments every 4 hours -Advair, albuterol -Currently not wheezing, no need for steroids Status: Acute (13) Pneumothorax on right: -Small right apical pneumothorax seen on CT scan 09/21/2019 -Not seen on repeat chest x-ray 09/22/2019 -Currently no shortness of breath, good aeration bilateral lung griffith, no complaints of chest pain -Likely related to fall and or spontaneous pneumothorax from his COPD Plan: -Repeat chest x-ray today -Monitor respiratory status Status: Acute Attestations Medical Necessity Statement*: She requires continued hospitalization due to hip fracture, altered mental status, pneumothorax, anemia, thrombocytopenia, A. fib, respiratory failure Coding Level of Care Code Acute Back End Architect for [facility] Fwd Diagnoses Nondisplaced fracture of neck of left femur S72.002A Altered mental status R41.82 Cachexia R64 Severe protein-calorie malnutrition E43 Diastolic heart failure I50.30 History of CVA (cerebrovascular accident) Z86.73 Diabetes mellitus type 2, noninsulin dependent E11.9 Peripheral vascular disease I73.9 COPD (chronic obstructive pulmonary disease) J44.9 Anemia of chronic disease D63.8 Atrial fibrillation I48.19 Atrial fibrillation type: other persistent Acute respiratory failure J96.00 Pneumothorax on right J93.9
--- NOTE | 2019-09-23 09:57 | XR_ITS ---
WS: [id number] PORTABLE CHEST HISTORY: right apical ptx COMPARISON: 09/21/2019 and 09/22/2019. Tiny RIGHT apical pneumothorax persists. Lungs are hyperinflated with changes of emphysema. Pleural t hickening, fluid and scarring is stable at the LEFT lung base. No pneumonia. Cardiac size: Normal. Mediastinum/Aorta: Moderate atherosclerosis aorta. Osteopenia. XR/XR chest 1V portable [id number] IMPRESSION: 1. Tiny RIGHT apical pneumothorax. Slightly decreased in size since 09/22/2019. 2. Severe emphysema with pleural thickening or pleural fluid at the LEFT costo phrenic angle.
--- NOTE | 2019-09-23 10:31 | PC.OT ---
OT note: Pt to have surgery today, will hold at this time.
[2019-09-23 10:56] LABS: Partial Thromboplastin Time 62.4 SECONDS (23.9-36.7)
[2019-09-23 12:10] LABS: Glucose Point of Care 121 mg/dL (70-110)
--- NOTE | 2019-09-23 12:46 | ANES.PREANE2 ---
Pre-Anesthetic Assessment Pre-Anesthetic Assessment: Height/Weight: Height 1.63 m Weight 53.524 kg Temp Pulse Resp BP Pulse Ox 98.4 F 70 18 156/89 100 09/23/19 12:23 09/23/19 12:23 09/23/19 12:23 09/23/19 12:23 09/23/19 12:23 Preop Diagnosis: left femoral neck fracture Proposed Procedure: Operation Date: 09/23/19 17:20 Proposed Procedures p Pinning left femoral neck fracture(Left) - Arenl Sandoval MD Familial anesthetic complications: unknown Last intake: Intake NPO > 8 hrs Last Liquid Date 09/22/19 Last Solid Date 09/22/19 Social: Social History: Tobacco Exam: Pre-Anes Outpt Exam: alert, oriented x 3, clear to auscultation bilaterally and regular rate & rhythm Airway: MP: 2 Pulmonary: Pulmonary: COPD (2 L NC) Comments: Small R pneumothorax - avoid positive pressure ventilation CV/HEM: CV/HEM: Afib (w; RVR in hospital - rate controlled), Anemia, CHF and PVD Comments: EF 65%, mild LVH (mod TVR, mild AVR and PVR) on heparin gtt for a fib Metabolic: Metabolic: DM Musc/skel: Comments: cachexia Neuropsych: Neuropsych: CVA Comments: Carotid artery stenosis Anesthetic Plan: ASA status: 4 Anesthesia: MAC Other: local/MAC for pinning Other Pertinent Information: hx obtained from chart review Meds/Allergies Current Medications: Current Medications Generic Name Dose Route Start Last Admin Trade Name Freq PRN Reason Stop Dose Admin Albuterol/Ipratrop ium 3 ml 09/22/19 12:00 09/23/19 08:54 Duoneb INHALATION 3 ml Q4H.RESPIRATORY S CH Administration Atorvastatin Calci um 20 mg 09/21/19 21:00 09/22/19 21:50 Lipitor PO 20 mg BEDTIME HUSSEIN Administration Citalopram Hydrobr omide 10 mg 09/22/19 09:00 09/23/19 08:29 Celexa PO 10 mg DAILY HUSSEIN Administration Ceftriaxone Sodium 1,000 mg/ 50 mls @ 100 mls/ hr 09/21/19 18:00 09/22/19 18:00 Sodium Chloride IV 100 mls/hr Q24H HUSSEIN Administration Protocol Heparin Sodium/Sod ium Chloride 25,000 unit in 50 0 mls @ 0 mls/hr 09/22/19 09:30 09/22/19 10:36 Heparin Drip IV 14.01 unit/kg/hr .Q0M HUSSEIN 15 mls/hr Administration Protocol Per Protocol Insulin Aspart 0 unit 09/22/19 12:00 09/23/19 12:09 Novolog SUBCUT Not Given TIDWM HUSSEIN Protocol Lisinopril 10 mg 09/22/19 09:00 09/23/19 08:29 Prinivil PO 10 mg DAILY HUSSEIN Administration Metoprolol Tartrat e 100 mg 09/22/19 18:00 09/23/19 08:29 Lopressor PO 100 mg BID HUSSEIN Administration Fluticasone/Salmet levi 1 puff 09/22/19 20:00 09/23/19 08:54 Advair Diskus 10 0-50 INHALATION 1 puff BID.RESPIRATORY S CH Administration PFSH Anesthesia PFSH: Medical History Anemia of chronic disease COPD (chronic obstructive pulmonary disease) Diabetes mellitus type 2, noninsulin dependent Diastolic heart failure History of CVA (cerebrovascular accident) Peripheral vascular disease Surgical History History of carotid endarterectomy Family History Other Cancer Diabetes Social History Smoking and tobacco status: current every day smoker Alcohol intake: never Data Anesthesia CBC & Chem 7: 09/23/19 03:29 09/23/19 03:29 Other Labs: Laboratory Results - last 48 hr 09/21/19 09/21/19 09/21/19 11:55 16:36 16:36 WBC 7.7 RBC 4.44 Hgb 13.2 Hct 43.2 MCV 97.3 MCH 29.7 MCHC 30.6 RDW 11.9 L Plt Count 142 MPV 12.3 H Neut % (Auto) 81.3 Lymph % (Auto) 8.9 [place] % (Auto) 8.9 Eos % (Auto) 0.1 Baso % (Auto) 0.5 Reticulocyte % (Auto) Neut # (Auto) 6.3 Lymph # (Auto) 0.7 L [place] # (Auto) 0.7 Eos # (Auto) 0.0 Baso # (Auto) 0.0 Nucleated RBC % (auto) 0 Nucleated RBCs # 0.0 PT 14.40 H INR 1.09 APTT Sodium Potassium Chloride Carbon Dioxide Anion Gap BUN Creatinine Glucose POC Glucose Estimat Average Glucose Hemoglobin A1c Calculated Osmolality Calcium Phosphorus Magnesium Iron TIBC % Saturation Unsat Iron Binding Ferritin Total Bilirubin AST ALT Alkaline Phosphatase NT-Pro-B Natriuret Pep Total Protein Albumin Globulin Triglycerides Cholesterol LDL Cholesterol, Calc HDL Cholesterol LDL/HDL Ratio Cholesterol/HDL Ratio TSH Urine RBC 15-25 H Urine WBC 5-10 H Ur Squamous Epith Cells 0-4 H Urine Bacteria 4+ H 09/21/19 09/21/19 09/21/19 16:36 16:36 16:36 WBC RBC Hgb Hct MCV MCH MCHC RDW Plt Count MPV Neut % (Auto) Lymph % (Auto) [place] % (Auto) Eos % (Auto) Baso % (Auto) Reticulocyte % (Auto) Neut # (Auto) Lymph # (Auto) [place] # (Auto) Eos # (Auto) Baso # (Auto) Nucleated RBC % (auto) Nucleated RBCs # PT INR APTT Sodium 136 Potassium 4.4 Chloride 95 L Carbon Dioxide 29 Anion Gap 16.4 BUN 18 Creatinine 1.0 H Glucose 129 H POC Glucose Estimat Average Glucose 160 Hemoglobin A1c 7.2 H Calculated Osmolality 280 L Calcium 10.2 Phosphorus 3.5 Magnesium 2.3 Iron TIBC % Saturation Unsat Iron Binding Ferritin Total Bilirubin 1.1 AST 19 ALT 10 Alkaline Phosphatase 86 NT-Pro-B Natriuret Pep 7250 H Total Protein 7.8 Albumin 4.0 Globulin 3.8 Triglycerides 76 Cholesterol 144 LDL Cholesterol, Calc 67 HDL Cholesterol 62 LDL/HDL Ratio 1.08 Cholesterol/HDL Ratio 2.32 TSH 4.62 H Urine RBC Urine WBC Ur Squamous Epith Cells Urine Bacteria 09/22/19 09/22/19 09/22/19 11:51 15:45 16:53 WBC RBC Hgb Hct MCV MCH MCHC RDW Plt Count MPV Neut % (Auto) Lymph % (Auto) [place] % (Auto) Eos % (Auto) Baso % (Auto) Reticulocyte % (Auto) Neut # (Auto) Lymph # (Auto) [place] # (Auto) Eos # (Auto) Baso # (Auto) Nucleated RBC % (auto) Nucleated RBCs # PT INR APTT 113.1 H Sodium Potassium Chloride Carbon Dioxide Anion Gap BUN Creatinine Glucose POC Glucose 213 216 Estimat Average Glucose Hemoglobin A1c Calculated Osmolality Calcium Phosphorus Magnesium Iron TIBC % Saturation Unsat Iron Binding Ferritin Total Bilirubin AST ALT Alkaline Phosphatase NT-Pro-B Natriuret Pep Total Protein Albumin Globulin Triglycerides Cholesterol LDL Cholesterol, Calc HDL Cholesterol LDL/HDL Ratio Cholesterol/HDL Ratio TSH Urine RBC Urine WBC Ur Squamous Epith Cells Urine Bacteria 09/22/19 09/22/19 09/23/19 21:18 21:45 03:29 WBC 6.2 RBC 3.56 L Hgb 10.7 L Hct 33.8 L MCV 94.9 MCH 30.1 MCHC 31.7 RDW 11.9 L Plt Count 116 L MPV 12.5 H Neut % (Auto) 72.7 Lymph % (Auto) 14.6 [place] % (Auto) 11.5 Eos % (Auto) 0.3 Baso % (Auto) 0.6 Reticulocyte % (Auto) Neut # (Auto) 4.5 Lymph # (Auto) 0.9 [place] # (Auto) 0.7 Eos # (Auto) 0.0 Baso # (Auto) 0.0 Nucleated RBC % (auto) 0 Nucleated RBCs # 0.0 PT INR APTT 62.8 H Sodium Potassium Chloride Carbon Dioxide Anion Gap BUN Creatinine Glucose POC Glucose 132 Estimat Average Glucose Hemoglobin A1c Calculated Osmolality Calcium Phosphorus Magnesium Iron TIBC % Saturation Unsat Iron Binding Ferritin Total Bilirubin AST ALT Alkaline Phosphatase NT-Pro-B Natriuret Pep Total Protein Albumin Globulin Triglycerides Cholesterol LDL Cholesterol, Calc HDL Cholesterol LDL/HDL Ratio Cholesterol/HDL Ratio TSH Urine RBC Urine WBC Ur Squamous Epith Cells Urine Bacteria 09/23/19 09/23/19 09/23/19 03:29 03:29 03:29 WBC RBC Hgb Hct MCV MCH MCHC RDW Plt Count MPV Neut % (Auto) Lymph % (Auto) [place] % (Auto) Eos % (Auto) Baso % (Auto) Reticulocyte % (Auto) 0.8100 Neut # (Auto) Lymph # (Auto) [place] # (Auto) Eos # (Auto) Baso # (Auto) Nucleated RBC % (auto) Nucleated RBCs # PT INR APTT 57.4 H Sodium 136 Potassium 3.8 Chloride 96 L Carbon Dioxide 29 Anion Gap 14.8 BUN 24 H Creatinine 1.4 H Glucose 148 H POC Glucose Estimat Average Glucose Hemoglobin A1c Calculated Osmolality 282 L Calcium 9.2 Phosphorus 2.8 Magnesium 2.0 Iron TIBC % Saturation Unsat Iron Binding Ferritin Total Bilirubin 0.7 AST 15 ALT 6 Alkaline Phosphatase 66 NT-Pro-B Natriuret Pep Total Protein 6.5 L Albumin 3.2 L Globulin 3.3 Triglycerides Cholesterol LDL Cholesterol, Calc HDL Cholesterol LDL/HDL Ratio Cholesterol/HDL Ratio TSH Urine RBC Urine WBC Ur Squamous Epith Cells Urine Bacteria 09/23/19 09/23/19 09/23/19 03:29 06:40 08:10 WBC RBC Hgb Hct MCV MCH MCHC RDW Plt Count MPV Neut % (Auto) Lymph % (Auto) [place] % (Auto) Eos % (Auto) Baso % (Auto) Reticulocyte % (Auto) Neut # (Auto) Lymph # (Auto) [place] # (Auto) Eos # (Auto) Baso # (Auto) Nucleated RBC % (auto) Nucleated RBCs # PT INR APTT Sodium Potassium Chloride Carbon Dioxide Anion Gap BUN Creatinine Glucose POC Glucose 134 133 Estimat Average Glucose Hemoglobin A1c Calculated Osmolality Calcium Phosphorus Magnesium Iron 37 TIBC 187 % Saturation 19.7 L Unsat Iron Binding 150 Ferritin 324 H Total Bilirubin AST ALT Alkaline Phosphatase NT-Pro-B Natriuret Pep Total Protein Albumin Globulin Triglycerides Cholesterol LDL Cholesterol, Calc HDL Cholesterol LDL/HDL Ratio Cholesterol/HDL Ratio TSH Urine RBC Urine WBC Ur Squamous Epith Cells Urine Bacteria 09/23/19 09/23/19 10:12 12:04 WBC RBC Hgb Hct MCV MCH MCHC RDW Plt Count MPV Neut % (Auto) Lymph % (Auto) [place] % (Auto) Eos % (Auto) Baso % (Auto) Reticulocyte % (Auto) Neut # (Auto) Lymph # (Auto) [place] # (Auto) Eos # (Auto) Baso # (Auto) Nucleated RBC % (auto) Nucleated RBCs # PT INR APTT 62.4 H Sodium Potassium Chloride Carbon Dioxide Anion Gap BUN Creatinine Glucose POC Glucose 121 Estimat Average Glucose Hemoglobin A1c Calculated Osmolality Calcium Phosphorus Magnesium Iron TIBC % Saturation Unsat Iron Binding Ferritin Total Bilirubin AST ALT Alkaline Phosphatase NT-Pro-B Natriuret Pep Total Protein Albumin Globulin Triglycerides Cholesterol LDL Cholesterol, Calc HDL Cholesterol LDL/HDL Ratio Cholesterol/HDL Ratio TSH Urine RBC Urine WBC Ur Squamous Epith Cells Urine Bacteria Micro: Microbiology 09/21/19 11:55 Urine Culture - Final Urine,Clean Catch Klebsiella pneumoniae 09/21/19 16:38 Blood Culture - Preliminary Blood NEGATIVE TO DATE 09/21/19 16:36 Blood Culture - Preliminary Blood NEGATIVE TO DATE Cardiac Studies: No Data to Display
[2019-09-23] MEDS: sodium chloride 0.9% 1,000 ML 30 ML IV (12:59)
--- NOTE | 2019-09-23 14:12 | W.PM.OPSUD ---
Surgery/Procedure H&P Update DATE OF PROCEDURE: September 23, 2019 DATE H&P PERFORMED: 09/21/19 PREOP DIAGNOSIS: left femoral neck fracture PLANNED PROCEDURE: Operation Date: 09/23/19 17:20 Proposed Procedures p Pinning left femoral neck fracture(Left) - Arnel Sandoval MD
--- NOTE | 2019-09-23 15:35 | SUR.PHASEI ---
PT SLEEPS WITH ORAL AIRWAY IN PLACE GOOD RESP EFFORT NOTED LT HIP DRESSING D/I WITH DISTAL LT FOOT PULSE MARKED STRONG AND REGULAR BILAT SCDS ON AND WORKING SWARTZ TO DD WITH YELLOW URINE STAT LOCK TO RT THIGH.
--- NOTE | 2019-09-23 15:40 | SUR.PHASEI ---
1540 PT ON 3LNC NOW ORAL AIRWAY OUT PT OPENS EYES BUT DOES NOT RESPOND.
--- NOTE | 2019-09-23 15:48 | SUR.PHASEI ---
PT CONTINUES TO SLEEP WITH NO DISTRESS, MONITOR AFIB PRE SURGERY, VSS SATS 100% ON 3LNC. REPORT CALLED TO FLOOR NURSE.
--- NOTE | 2019-09-23 15:52 | PM.OP ---
Operative Report Date of procedure: September 23, 2019 Pre-op Diagnosis: left femoral neck fracture Post-op diagnosis: same Post-op Findings: Same Procedure Done: Percutaneous pinning left hip Implants: 8.0 mm ASNIS screws x3 Surgeon: Arnel Sandoval Anesthesia: General Estimated blood loss (mL): 10 Findings: The patient had a valgus impacted fracture of the left femoral neck Condition: stable Disposition: PACU Procedure: The patient was positioned on the fracture table with his right leg in traction. They were given 2 g of Ancef. Sedation was provided by the anesthesia. The lateral skin was infiltrated by a 1% Marcaine, lidocaine, epinephrine solution A timeout was performed. A small lateral stab wound was made just below the level of the greater trochanter with a scalpel blade. Under visit so fluoroscopy initial guide pin was driven from a central position just above the level of lesser trochanter into inferior neck and inferior head. Over this was passed an 8.0 mm [place] Asnis screw. A second pin was placed in the superior anterior position and a second screw placed. A third pin was placed in a posterior superior position and a third screw placed. Intraoperative fluoroscopy was used to verify hardware position. The wound was irrigated with saline. Deep tissues were closed with 3-0 Vicryl. A sterile dressing was applied. The patient was taken to [] unit in stable condition.
[2019-09-23 16:52] LABS: Basophils # 0.1 10^3/uL (0.0-0.1); Eosinophils # 0.1 10^3/uL (0.0-0.8); Hematocrit 41.7 % (37.0-47.0); Hemoglobin 12.2 g/dL (11.5-15.3); Lymphocytes # 0.9 10^3/uL (0.8-4.8); Lymphocytes % 18.4 %; Mean Corpuscular HGB Conc 29.3 g/dL (30.0-36.0); Mean Corpuscular Hemoglobin 29.3 pg (28.0-34.0); Mean Corpuscular Volume 100.2 fL (81-99); Mean Platelet Volume 12.5 fL (7.4-10.4); Monocytes # 0.5 10^3/uL (0.2-0.9); Monocytes % 9.2 %; Neutrophils # 3.6 10^3/uL (1.8-7.7); Nucleated Red Blood Cells % 0 %; Platelet Count 111 10^3/cmm (130-400); Red Blood Count 4.16 10^6/uL (4.1-5.3); Red Cell Distribution Width 11.9 % (12.1-15.1); White Blood Count 5.1 10^3/uL (4.0-10.0)
[2019-09-23 17:06] LABS: Glucose Point of Care 120 mg/dL (70-110)
[2019-09-23 17:06] LABS: Glucose Point of Care 171 mg/dL (70-110)
[2019-09-23 17:19] LABS: Partial Thromboplastin Time 26.6 SECONDS (23.9-36.7)
[2019-09-23] MEDS: cefTRIAXone 1,000 MG in sodium chloride 0.9% (plus) 50 ML 100 MG IV (18:11)
[2019-09-23 22:44] LABS: Glucose Point of Care 252 mg/dL (70-110)
[2019-09-24] VITALS: BP 165/82; PULSE 88; RESP 16; TEMP 36.9; O2SAT 100
[2019-09-24 04:00] VITALS: BP 165/70; PULSE 99; RESP 24; TEMP 36.8; O2SAT 99
[2019-09-24 05:05] LABS: Basophils % 0.4 %; Eosinophils % 0.6 %; Hematocrit 32.5 % (37.0-47.0); Hemoglobin 10.2 g/dL (11.5-15.3); Lymphocytes # 0.6 10^3/uL (0.8-4.8); Lymphocytes % 8.9 %; Mean Corpuscular HGB Conc 31.4 g/dL (30.0-36.0); Mean Corpuscular Hemoglobin 29.9 pg (28.0-34.0); Mean Corpuscular Volume 95.3 fL (81-99); Mean Platelet Volume 13.3 fL (7.4-10.4); Monocytes # 0.7 10^3/uL (0.2-0.9); Monocytes % 10.2 %; Neutrophils # 5.5 10^3/uL (1.8-7.7); Neutrophils % 79.6 %; Nucleated Red Blood Cells % 0 %; Platelet Count 113 10^3/cmm (130-400); Red Blood Count 3.41 10^6/uL (4.1-5.3); White Blood Count 6.9 10^3/uL (4.0-10.0)
[2019-09-24 05:32] LABS: Alanine Aminotransferase 6 U/L (0-33); Albumin Level 3.1 g/dL (3.5-5.2); Alkaline Phosphatase 61 IU/L (35-105); Anion Gap 13.2 (5-19); Aspartate Amino Transferase 10 U/L (0-32); Blood Urea Nitrogen 27 mg/dL (8-23); Calcium 9.1 mg/dL (8.5-10.5); Carbon Dioxide 30 mmol/L (22-29); Chloride 94 mmol/L (98-107); Globulin 2.9 g/dL (1.3-4.6); Glucose 175 mg/dL (65-115); Magnesium 1.9 mg/dL (1.7-2.3); Osmolality Calculated 277 mOsm/kg (285-295); Phosphorus 2.9 mg/dL (2.5-4.5); Potassium 4.2 mmol/L (3.5-5.1); Sodium 133 mmol/L (136-145); Total Bilirubin 0.4 mg/dL (0.15-1.2)
[2019-09-24 08:08] VITALS: BP 137/62; PULSE 90; RESP 18; TEMP 36.4; O2SAT 94
[2019-09-24] MEDS: FUROsemide 40 mg Tablet PO (08:44)
[2019-09-24] MEDS: citalopram 20 mg Tablet 10 MG PO (08:45)
[2019-09-24] MEDS: metoprolol tartrate 50 mg Tablet 100 MG PO (08:45)
[2019-09-24] MEDS: apixaban 5 mg Tablet 2.5 MG PO (08:45)
[2019-09-24] MEDS: lisinopril 10 mg Tablet PO (08:46)
[2019-09-24 10:46] LABS: Basophils # 0.1 10^3/uL (0.0-0.1); Basophils % 0.7 %; Eosinophils % 0.5 %; Hematocrit 34.5 % (37.0-47.0); Hemoglobin 10.8 g/dL (11.5-15.3); Lymphocytes # 0.7 10^3/uL (0.8-4.8); Lymphocytes % 8.6 %; Mean Corpuscular HGB Conc 31.3 g/dL (30.0-36.0); Mean Corpuscular Hemoglobin 29.9 pg (28.0-34.0); Mean Corpuscular Volume 95.6 fL (81-99); Mean Platelet Volume 13.2 fL (7.4-10.4); Monocytes # 0.8 10^3/uL (0.2-0.9); Monocytes % 10.4 %; Neutrophils % 79.4 %; Nucleated Red Blood Cells % 0 %; Platelet Count 120 10^3/cmm (130-400); Red Blood Count 3.61 10^6/uL (4.1-5.3); Red Cell Distribution Width 11.9 % (12.1-15.1); White Blood Count 7.5 10^3/uL (4.0-10.0)
[2019-09-24 11:09] LABS: Partial Thromboplastin Time 30.8 SECONDS (23.9-36.7)
[2019-09-24 11:46] VITALS: BP 125/72; PULSE 73; RESP 14; TEMP 36.8; O2SAT 98
[2019-09-24 11:59] VITALS: PULSE 86; RESP 16; O2SAT 94
[2019-09-24 12:22] LABS: Glucose Point of Care 233 mg/dL (70-110)
--- NOTE | 2019-09-24 13:03 | P.DS_ITS ---
Discharge Providers Date of Admission: 09/21/19 15:13 Date of Discharge: September 24, 2019 Attending Provider at Admission: Leroy Arce MD Attending Provider at Discharge: Leroy Arce MD Primary Care Provider: Keny Szymanski DO Diagnoses at Discharge Discharge Diagnosis (1) Nondisplaced fracture of neck of left femur: Status: Acute (2) Altered mental status: Status: Acute (3) Cachexia: Status: Acute (4) Severe protein-calorie malnutrition: Status: Acute (5) Diastolic heart failure: Status: Acute (6) History of CVA (cerebrovascular accident): Status: Acute (7) Diabetes mellitus type 2, noninsulin dependent: Status: Acute (8) Peripheral vascular disease: Status: Acute (9) COPD (chronic obstructive pulmonary disease): Status: Acute (10) Anemia of chronic disease: Status: Acute (11) Atrial fibrillation: Status: Acute Qualifiers: Atrial fibrillation type: other persistent Qualified Code(s): I48.19 - Other persistent atrial fibrillation (12) Acute respiratory failure: Status: Acute (13) Pneumothorax on right: Status: Acute Reason for Visit Reason for Visit: Reason For Visit: LEFT HIP PAIN Hospital Course Discharge Summary: Tabitha Meredith is a 84 year old female the past medical history of diastolic heart failure, CVA, chronic atrial fibrillation not on anticoagulation, hyperlipidemia, hypertension, peripheral vascular disease chronic kidney disease, type 2 diabetes mellitus [id number], COPD uses 2 L when she feels short of breath, anemia chronic disease, history of carotid endarterectomy who presents to the emergency room status post fall. Patient was admitted for a nondisplaced fracture of the left femur, status post percutaneous pinning of left hip by Dr. Sandoval, tolerated the procedure well discharged to custodial with physical therapy, pain control with Happy, DVT prophylaxis Eliquis. On admission patient was found to have moderate dementia, has short-term memory loss, troubles with executive level functioning, patient is a resident of a independent living facility, patient is unsafe to go back home, I spoke to patient's daughter who stated that her and Dr. Szymanski have been trying to get her to go over to the custodial for the last 2 years, but patient refused. Near her discharge, even after antibiotic treatment for her UTI, patient's mentation slightly improved but continues to have episodes of memory loss, short-term memory loss, episodes of confusion. After discussion the risk and benefits with patient and family, patient voiced understanding, all questions answered, agreed to custodial placement. Patient was discharged to custodial. For altered mental status secondary UTI, patient was discharged on Bactrim For patient's atrial fibrillation, patient is not on anticoagulation as she could not afford Eliquis, she was discharged on Metroprolol 100 twice daily, Eliquis 2.5 mg twice daily, with repeat CBC tomorrow Patient was also found to have anemia during her hospital admission, hemoglobin at discharge was 10.8, patient was discharged with instruction to monitor CBC as outpatient, monitor for bloody or black stools. I discharged her on Protonix 40 twice daily, with a follow-up with general surgery as outpatient for considerati on of EGD Patient was also found to have type 2 diabetes during her hospital admission, she has a history of this, but was not taking metformin, discharged on metformin thousand milligrams once daily, Monitor blood sugars 3 times daily. Patient was also found to have COPD during admission, she does not regularly use oxygen, she was discharged on 2 L oxygen daily, Advair, albuterol, with instr uctions to stop smoking cigarettes. Patient was also found to have severe protein calorie malnutrition during hospital admission, cachexia, patient was advised custodial was advised to continue physical therapy, protein shakes daily Patient was also found to have a small right apical pneumothorax during her hospital admission, right likely related to her fall, repeat chest x-rays did not show any expansion of this pneumothorax, patient was discharged with repeat chest x-ray tomorrow, with monitoring her respiratory status as outpatient. Physical Exam Const: COMMON NORMALS: no apparent distress and alert GENERAL APPEARANCE: cooperative and comfortable ORIENTATION/CONSCIOUSNESS: Yes awake, Yes oriented to person and Yes oriented to place; not oriented to time HENMT: COMMON NORMALS: normocephalic HEAD & SCALP: normocephalic Eye: COMMON NORMALS: PERRL, EOMs intact bilaterally and no papilledema GENERAL EYE: normal appearance of both eyes PUPIL: Yes PERRL DIRECT OPHTHALMOSCOPY: Yes no papilledema Neck/C-Spine: COMMON NORMALS: no JVD Lymph: LYMPHATIC: no lymphadenopathy noted Resp: COMMON NORMALS: normal respiratory effort, no retractions, no use of accessory muscles and clear to auscultation bilaterally AUSCULTATION: clear to auscultation bilaterally Cardio: COMMON NORMALS: no JVD, regular rate, regular rhythm, S1 normal heart sound, S2 normal heart sound, no gallops, no clicks and no murmurs RATE: regular rate RHYTHM: regular rhythm and abnormal rhythm HEART SOUNDS: S1 normal and S2 normal GI: COMMON NORMALS: normal to inspection, nondistended, normoactive bowel sounds, soft to palpation, non-tender and no hepatosplenomegaly PALPATION: Yes soft and Yes no hepatosplenomegaly Extremity: COMMON NORMALS: normal to inspection, full ROM and no pedal edema Neuro: SENSORIUM/ORIENTATION: Yes alert, Yes oriented to person, Yes oriented to place and No oriented to time Psych: ATTENTION/CONCENTRATION: Yes attention grossly impaired and Yes concentration grossly impaired MEMORY/COGNITION: Yes memory grossly impaired Urinary Catheter Management^: Gregory: Cath Placed During This Visit: yes, but has since been removed by the nurse Reason for Continuing Indwelling Catheter: Required Immobilization for Trauma or Surgery or Anesthesia Urinary Catheter Date of Insertion: 09/21/19 Urinary Catheter Time of Insertion: 17:32 Date Urinary Catheter Removed: 09/24/19 Time Urinary Catheter Discontinued: 06:00 Discharge Data Data Completed and Pending: Completed Studies During Hospitalization Category Date Time Status CT chest abd pel wo con Urgent Cat Scan 09/21/19 15:[address] head wo con* [id number] Urgent Cat Scan 09/21/19 10:55 Completed XR chest 1V giana ble [id number] Stat Exams 09/22/19 08:23 Completed XR chest 1V giana ble [id number] Stat Exams 09/23/19 09:57 Completed XR hip LT 2-3V wo /w pel* [id number] Rout ine Exams 09/23/19 Completed XR hip LT 2-3V wo /w pel* [id number] Stat Exams 09/21/19 11:25 Completed CV echo complete* [id number] Routine Ultrasound 09/22/19 06:00 Completed Pending at discharge Category Date Time Status Blood Culture Sta t Lab 09/21/19 16:38 Results Complete Blood Co unt w/Auto AM LABS Lab 09/25/19 04:00 Ordered Comprehensive Met abolic Panel AM LA BS Lab 09/25/19 04:00 Ordered Immunochemical Fe alfredito OCB Stat Lab 09/23/19 08:13 Uncollected Magnesium AM LABS Lab 09/25/19 04:00 Ordered Phosphorus AM LAB S Lab 09/25/19 04:00 Ordered Labs from last 24 hours 09/24/19 09/24/19 09/24/19 12:19 10:30 10:30 WBC 7.5 RBC 3.61 L Hgb 10.8 L Hct 34.5 L MCV 95.6 MCH 29.9 MCHC 31.3 RDW 11.9 L Plt Count 120 L MPV 13.2 H Neut % (Auto) 79.4 Lymph % (Auto) 8.6 [place] % (Auto) 10.4 Eos % (Auto) 0.5 Baso % (Auto) 0.7 Neut # (Auto) 6.0 Lymph # (Auto) 0.7 L [place] # (Auto) 0.8 Eos # (Auto) 0.0 Baso # (Auto) 0.1 Nucleated RBC % (a uto) 0 Nucleated RBCs # 0.0 APTT 30.8 Sodium Potassium Chloride Carbon Dioxide Anion Gap BUN Creatinine Glucose POC Glucose 233 Calculated Osmolal ity Calcium Phosphorus Magnesium Total Bilirubin AST ALT Alkaline Phosphata se Total Protein Albumin Globulin 09/24/19 09/24/19 09/23/19 04:10 04:10 22:39 WBC 6.9 RBC 3.41 L Hgb 10.2 L Hct 32.5 L MCV 95.3 MCH 29.9 MCHC 31.4 D RDW 12.0 L Plt Count 113 L MPV 13.3 H Neut % (Auto) 79.6 Lymph % (Auto) 8.9 [place] % (Auto) 10.2 Eos % (Auto) 0.6 Baso % (Auto) 0.4 Neut # (Auto) 5.5 Lymph # (Auto) 0.6 L [place] # (Auto) 0.7 Eos # (Auto) 0.0 Baso # (Auto) 0.0 Nucleated RBC % (a uto) 0 Nucleated RBCs # 0.0 APTT Sodium 133 L Potassium 4.2 Chloride 94 L Carbon Dioxide 30 H Anion Gap 13.2 BUN 27 H Creatinine 1.3 H Glucose 175 H POC Glucose 252 Calculated Osmolal ity 277 L Calcium 9.1 Phosphorus 2.9 Magnesium 1.9 Total Bilirubin 0.4 AST 10 ALT 6 Alkaline Phosphata se 61 Total Protein 6.0 L Albumin 3.1 L Globulin 2.9 05/11/20 05/11/20 05/11/20 16:50 16:45 16:40 WBC RBC Hgb Hct MCV MCH MCHC RDW Plt Count MPV Neut % (Auto) Lymph % (Auto) [place] % (Auto) Eos % (Auto) Baso % (Auto) Neut # (Auto) Lymph # (Auto) [place] # (Auto) Eos # (Auto) Baso # (Auto) Nucleated RBC % (a uto) Nucleated RBCs # APTT 26.6 D Sodium Potassium Chloride Carbon Dioxide Anion Gap BUN Creatinine Glucose POC Glucose 171 120 Calculated Osmolal ity Calcium Phosphorus Magnesium Total Bilirubin AST ALT Alkaline Phosphata se Total Protein Albumin Globulin 09/23/19 16:40 WBC 5.1 RBC 4.16 Hgb 12.2 Hct 41.7 MCV 100.2 H D MCH 29.3 MCHC 29.3 L D RDW 11.9 L Plt Count 111 L MPV 12.5 H Neut % (Auto) 70.0 Lymph % (Auto) 18.4 [place] % (Auto) 9.2 Eos % (Auto) 1.0 Baso % (Auto) 1.0 Neut # (Auto) 3.6 Lymph # (Auto) 0.9 [place] # (Auto) 0.5 Eos # (Auto) 0.1 Baso # (Auto) 0.1 Nucleated RBC % (a uto) 0 Nucleated RBCs # 0.0 APTT Sodium Potassium Chloride Carbon Dioxide Anion Gap BUN Creatinine Glucose POC Glucose Calculated Osmolal ity Calcium Phosphorus Magnesium Total Bilirubin AST ALT Alkaline Phosphata se Total Protein Albumin Globulin Vitals: Last Vital Signs Temp 98.2 F 09/24/19 11:46 Pulse 86 09/24/19 11:59 Resp 16 09/24/19 11:59 BP 125/72 09/24/19 11:46 Pulse Ox 94 09/24/19 11:59 Discharge Plan Discharge Patient Disposition: Xfer SNF Condition: Stable Prescriptions: New atorvastatin 40 mg Tablet 40 mg PO BEDTIME 30 Days Qty: 30 RF: 0 Eliquis 5 mg Tablet 2.5 mg PO BID 30 Days Qty: 60 RF: 0 hydrocodone-acetaminophen 5-325 mg Tablet 1 tab PO Q8H PRN (Reason: Breakthrough Pain) 15 Days Qty: 45 RF: 0 fluticasone propion-salmeterol [Advair Diskus] 100-50 mcg/dose Blister With Device 1 ea inhalation DAILY 30 Days Qty: 60 RF: 0 albuterol sulfate 90 mcg/actuation HFA aerosol inhaler 1 inh INHALATION Q6H PRN (Reason: shortness of breath or wheezing) Qty: 18 RF: 0 sulfamethoxazole-trimethoprim [Bactrim DS] 800-160 mg tablet 1 tab PO BID 2 Days Qty: 4 RF: 0 metformin 1,000 mg tablet 1,000 mg PO DAILY 30 Days Qty: 30 RF: 0 aspirin [Adult Low Dose Aspirin] 81 mg tablet,delayed release (DR/EC) 81 mg PO DAILY 30 Days Qty: 30 RF: 0 Continued furosemide 40 mg tablet 40 mg PO DAILY RF: 0 metoprolol tartrate 100 mg tablet 100 mg PO BID RF: 0 citalopram 10 mg tablet 0 mg PO DAILY RF: 0 simvastatin 40 mg tablet 40 mg PO DAILY RF: 0 lisinopril 10 mg tablet 10 mg PO DAILY RF: 0 Discharge Orders: Discharge Order (Routine); Ordered 09/24/19 Ordered By: Leroy Arce Other Ambulatory Orders: Complete Blood Count w/Auto (Routine) Timeframe: 1 Day Location: Determined by Patient Ordered By: Leroy Arce Comprehensive Metabolic Panel (Routine) Timeframe: 1 Day Facility: [facility] - Location: Lab - Main Lab Ordered By: Leroy Arce XR chest 1V portable [id number] (Routine) Timeframe: 1 Day Facility: [facility] - Location: Radiology [facility] Ordered By: Leroy Arce Referrals: Kandy Marquez MD [Physician] - 2 weeks Discharge Diet: Cardiac Discharge Activity: Resume usual activity Patient Instructions: Atrial Fibrillation (DC), Malnutrition (DC), Malnutrition (GEN), Diabetes Mellitus Type 2 in Adults (GEN), Chronic Obstructive Pulmonary Disease (DC) Activity Restrictions/Additional Instructions: -For fall, and fracture, physical therapy, DVT prophylaxis Eliquis -For atrial fibrillation, Eliquis 2.5 mg twice daily, Metroprolol 100 mg twice daily, monitor for signs of bleeding, repeat CBC tomorrow -For COPD, albuterol as needed, Advair daily, 2 L oxygen daily -For CHF, Lasix 40 mg daily, daily weights, monitor I's and O's, fluid restrictions less than 1500 cc/day -For history of stroke, aspirin, statin as prescribed -For malnutrition, protein shakes daily with meals -For type 2 diabetes mellitus, metformin 100 mg once daily, monitor blood sugars 3 times daily, if blood sugar greater than 500 call physician, if blood sugar less than 60, drink or juice, call physician -For history of right apical pneumothorax, repeat chest x-ray tomorrow, monitor respiratory status Discharge Attestations Time Spent in Discharge Care*: less than 30 min Quality Metrics Clinical Quality Measures During this hospital stay, did patient experience: None Coding Level of Care Code Acute Application Lead for Chg Fwd Diagnoses Nondisplaced fracture of neck of left femur S72.002A Altered mental status R41.82 Cachexia R64 Severe protein-calorie malnutrition E43 Diastolic heart failure I50.30 History of CVA (cerebrovascular accident) Z86.73 Diabetes mellitus type 2, noninsulin dependent E11.9 Peripheral vascular disease I73.9 COPD (chronic obstructive pulmonary disease) J44.9 Anemia of chronic disease D63.8 Atrial fibrillation I48.19 Atrial fibrillation type: other persistent Acute respiratory failure J96.00 Pneumothorax on right J93.9
[2019-09-24 14:23] VITALS: BP 112/63; PULSE 86; RESP 16; TEMP 36.3; O2SAT 94
== END 2019-09-24 15:46 | disposition skilled nursing facility (03) | DRG 480 ==
LOC: ER 13:11 → MEDSURG 16:21
PROVIDERS: Orthopaedic Surgery; Admitting Provider Family Medicine; Emergency Provider Physician Assistant; PCP Internal Medicine; Visit Provider Family Medicine
PROC: 0QH734Z Insertion of Internal Fixation Device into Left Upper Femur, Percutaneous Approach (ICD-10-PCS; CPT 27236; principal; 2019-09-23 13:15)
DX: S72.012A Unspecified intracapsular fracture of left femur, initial encounter for closed fracture (principal); I50.33 Acute on chronic diastolic (congestive) heart failure; E43 Unspecified severe protein-calorie malnutrition; J96.00 Acute respiratory failure, unspecified whether with hypoxia or hypercapnia; I13.0 Hypertensive heart and chronic kidney disease with heart failure and stage 1 through stage 4 chronic kidney disease, or unspecified chronic kidney disease; I48.19 Other persistent atrial fibrillation; N39.0 Urinary tract infection, site not specified; J93.83 Other pneumothorax; W01.0XXA Fall on same level from slipping, tripping and stumbling without subsequent striking against object, initial encounter; N18.9 Chronic kidney disease, unspecified; E11.22 Type 2 diabetes mellitus with diabetic chronic kidney disease; Z86.73 Personal history of transient ischemic attack (TIA), and cerebral infarction without residual deficits; E78.5 Hyperlipidemia, unspecified; E11.51 Type 2 diabetes mellitus with diabetic peripheral angiopathy without gangrene; J44.9 Chronic obstructive pulmonary disease, unspecified; Z99.81 Dependence on supplemental oxygen; D63.1 Anemia in chronic kidney disease; F17.210 Nicotine dependence, cigarettes, uncomplicated; F03.90 Unspecified dementia, unspecified severity, without behavioral disturbance, psychotic disturbance, mood disturbance, and anxiety; Z68.20 Body mass index [BMI] 20.0-20.9, adult; T45.516A Underdosing of anticoagulants, initial encounter; Z91.120 Patient's intentional underdosing of medication regimen due to financial hardship; I08.2 Rheumatic disorders of both aortic and tricuspid valves; D69.6 Thrombocytopenia, unspecified; B96.1 Klebsiella pneumoniae [K. pneumoniae] as the cause of diseases classified elsewhere
CPT/HCPCS: 12345; 36415; 36416; 51702; 70450; 71045; 71250; 73502; 74176; 76000; 80053; 80061; 81001; 82728; 82962; 83036; 83540; 83550; 83735; 83880; 84100; 84443; 85025; 85045; 85610; 85730; 87040; 87077; 87086; 87186; 93005; 93306; 94640; 94664; 94762; 96372; 96375; 97161; 97167; 97530; 97535; 99283; C1713; J0696; J1644; J1650; J1815; J1940; J2001; J2704; J3010; J3490; J7030; J7611

== ENCOUNTER 2019-11-28 13:47 | Outpatient (CLI) | payer MEDICARE, SELFPAY ==
--- NOTE | 2019-11-28 13:54 | CT_ITS ---
WS: [id number] CT pelvis TECHNIQUE: Noncontrast CT of the pelvis with coronal and sagittal reformatted images. CLINICAL INFORMATION: PELVIC PAIN DLP: 417.[address] scans at [facility] use at least one of these dose optimization techniques: automat ed exposure control; mA and/or kV adjustment per patient size (includes targeted exams where dose is matched to clinical indication); or iterative reconstruction. FINDINGS: Diffuse osteopenia. Again seen is the cannulated screw fixation of the subcapital left hip fracture w ith slight impaction. No evidence of screw loosening. Screws appear in good position. 3 screws in tot al. Acetabulum appears normal. Alignment is anatomic. Additional nondisplaced fractures involving the left superior pubic ramus near the pubic symphysis an d adjacent inferior pubic ramus near the pubic symphysis. Associated callus formation. Mild displacem ent of the superior pubic ramus fracture. Pubic rami fractures appear new since September 21, 2019 CT. Additional subtle fractures involving the left hemisacrum. Slightly displaced fracture involving the left sacral ala extending into the body of the left hemisacrum. This is most likely due to a combinat ion of posttraumatic insufficiency fractures. Right hemisacrum appears normal and osteopenia limits s ensitivity. This also appears new from previous. CT/CT pelvis wo con [id number] IMPRESSION: 1. Osteopenia. 2. Satisfactory cannulated screw fixation left hip fracture with normal anatom ic alignment. No evidence of hardware loosening. 3. Left inferior and superior pubic rami fractures with some evidence of heali ng. Mild displacement of the superior pubic ramus fracture described above. 4. Small nondisplaced fracture involving the left aspect of the sacrum extendi ng into the sacral ala. Recommend correlation for left sacral pain. This is lik shane due to a combination of posttraumatic and sacral insufficiency fractures. T his can be followed up with MRI to assess for healing and edema if clinically i ndicated.
== END 2019-11-28 13:48 | disposition home or self-care (01) ==
LOC: CT 13:52
PROVIDERS: PCP Internal Medicine; Visit Provider Internal Medicine
DX: M85.88 Other specified disorders of bone density and structure, other site (principal); S32.502A Unspecified fracture of left pubis, initial encounter for closed fracture; S32.19XA Other fracture of sacrum, initial encounter for closed fracture; X58.XXXA Exposure to other specified factors, initial encounter
CPT/HCPCS: 72192

== ENCOUNTER → 2019-12-06 08:10 | Outpatient (BNVA) | payer MEDICARE, SELFPAY | PROVIDERS: PCP Internal Medicine; Referring Provider Internal Medicine; Visit Provider Orthopaedic Surgery | DX: Z98.890 Other specified postprocedural states (principal) | CPT/HCPCS: 72170 ==